=== PATIENT | female | born 1935 | race African-American/Black ===

== ENCOUNTER 2017-08-13 09:56 | Inpatient (IN) | payer MEDICARE ==
[2017-08-13 10:26] LABS: #Basophils 0.1 thou/uL (0.0-0.2); #Eosinphils 0.2 thou/uL (0.0-0.7); #Lymphocytes 3.5 thou/uL (1.20-3.40); #Monocytes 1.6 thou/uL (0.11-0.59); #Neutrophils 9.5 thou/uL (1.40-6.50); %Basophils 0.4 % (0.0-1.0); %Eosinophils 1.5 % (0.0-10.0); %Lymphocytes 23.8 % (21.0-51.0); %Monocytes 10.6 % (0.0-10.0); %Neutrophils 63.8 % (42.0-75.0); Hemoglobin 13.7 g/dL (12.0-16.0); Mean Corpuscular HGB CONC 32.9 g/dL (32.0-36.0); Mean Corpuscular Hemoglobin 27.8 pg (27.0-31.0); Mean Corpuscular Volume 84.6 fl (81.0-99.0); Platelet Count 391 thou/uL (130-400); RBC Distribution Width 13.3 % (11.5-14.5); Red Blood Cell (RBC) Count 4.91 mill/uL (4.20-5.40); White Blood Cell (WBC) Count 14.8 thou/uL (4.8-10.8)
[2017-08-13 10:34] LABS: Bilirubin Negative (Negative); Blood, Urine Negative (Negative); Clarity CLEAR (Clear); Glucose, Urine (Dipstick) Negative (Negative); Leukocyte Small (Negative); Nitrite Negative (Negative); Protein, Urine (Dipstick) Negative (Neg-Trace); Specific Gravity, Urine 1.016 (1.002-1.036)
[2017-08-13 10:36] LABS: Bacteria/HPF None Seen HPF (None Seen); Hyaline Casts/LPF 0-3 HYALINE CAST LPF (0-3 Hyaline); Pathc Cast-AUWi Flag 0.14 (0-2.49)
[2017-08-13 10:47] LABS: ALT (SGPT) 19 U/L (8-55); AST (SGOT) 18 U/L (5-34); Albumin 3.7 g/dL (3.4-4.8); Alkaline Phosphatase 117 U/L (40-150); Anion Gap 11 mmol/L (10-20); BUN (Urea Nitrogen) 13 mg/dL (9.8-20.1); Bilirubin, Total 0.4 mg/dL (0.2-1.2); Calc. Creatinine Clearance 0 mL/min (70-130); Calcium 11.8 mg/dL (7.8-10.44); Carbon Dioxide 26 mmol/L (23-31); Chloride 104 mmol/L (98-107); Estimated GFR-MDRD 73; Globulin 4.2 g/dL (2.4-3.5); Glucose 118 mg/dL (83-110); Potassium 3.8 mmol/L (3.5-5.1); Protein, Total 7.9 g/dL (6.0-8.3); Sodium 137 mmol/L (136-145)
[2017-08-13] MEDS ORDERED: Morphine 4 MG/ML VIAL ONE (11:00)
[2017-08-13] MEDS ORDERED: Lidocaine 1% w/Epinephrine 1:100K 20 ML VIAL ONE (11:00)
[2017-08-13] MEDS ORDERED: Adacel (T-DAP) 0.5 ML VIAL ONE (11:00)
[2017-08-13] MEDS ORDERED: Clindamycin/D5W 900 mg/50 ml Premix Bag ONE ×2 (11:00→11:01)
[2017-08-13] MEDS ORDERED: HYDROcodone/Acetaminophen 5/325 mg Tablet PO PRN ×2 (12:51)
[2017-08-13] MEDS ORDERED: Ondansetron PF 4 MG/2 ML Vial IVP PRN (12:51)
[2017-08-13] MEDS ORDERED: Acetaminophen 325 MG TAB PO PRN ×2 (12:51→13:01)
[2017-08-13] MEDS ORDERED: Ondansetron ODT 4 MG TAB SL PRN (12:51)
[2017-08-13] MEDS ORDERED: Sodium Chloride 0.9% 1,000 ML IV SCH (13:00)
[2017-08-13] MEDS ORDERED: Ondansetron ODT 4 MG TAB PO PRN (13:01)
[2017-08-13 14:09] VITALS: BMI 26.7
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
[2017-08-13] MEDS ORDERED: Senokot 8.6 MG TAB PO PRN (14:14)
[2017-08-13] MEDS ORDERED: Docusate 100 MG CAP PO PRN (14:14)
[2017-08-13] MEDS: Clindamycin/D5W 600 MG in Premix Bag 1 BAG IVPB SCH (18:10)
[2017-08-13] MEDS ORDERED: Clindamycin/D5W 900 MG in Premix Bag 1 BAG IVPB SCH (19:00)
[2017-08-13] MEDS ORDERED: Prevnar 13-Val Conj/PF 0.5 ML SYRINGE IM ONE (21:00)
[2017-08-14] MEDS: Clindamycin/D5W 600 MG in Premix Bag 1 BAG IVPB SCH ×2 (02:36→10:09)
[2017-08-14 05:46] LABS: Anion Gap 12 mmol/L (10-20); BUN (Urea Nitrogen) 14 mg/dL (9.8-20.1); Calc. Creatinine Clearance 62 mL/min (70-130); Calcium 11.3 mg/dL (7.8-10.44); Carbon Dioxide 24 mmol/L (23-31); Chloride 104 mmol/L (98-107); Estimated GFR-MDRD 74; Glucose 87 mg/dL (83-110); Potassium 4.3 mmol/L (3.5-5.1); Sodium 136 mmol/L (136-145)
[2017-08-14 06:02] LABS: Band 1 % (5-11); Eosinophils 4 % (0-10); Hemoglobin 12.4 g/dL (12.0-16.0); Lymphocytes 34 % (21-51); MDiff Complete? YES; Mean Corpuscular HGB CONC 32.5 g/dL (32.0-36.0); Mean Corpuscular Hemoglobin 27.4 pg (27.0-31.0); Mean Corpuscular Volume 84.2 fl (81.0-99.0); Mean Platelet Volume 8.4 fL (7.4-10.4); Monocytes 8 % (0-10); Neutrophil 53 % (42-75); Platelet Count 364 thou/uL (130-400); RBC Distribution Width 13.4 % (11.5-14.5); Red Blood Cell (RBC) Count 4.53 mill/uL (4.20-5.40); White Blood Cell (WBC) Count 11.6 thou/uL (4.8-10.8)
[2017-08-14] MEDS ORDERED: Enoxaparin Sodium 40 MG/0.4 ML SYRINGE SC SCH (09:00)
[2017-08-14] MEDS ORDERED: Donepezil HCl 5 MG TAB PO SCH (09:00)
[2017-08-14] MEDS ORDERED: Saccharomyces boulardii 250 MG CAP PO SCH (09:00)
[2017-08-14 11:25] VITALS: TEMP 98.2
--- NOTE | 2017-08-14 11:53 | PDOC.FM ---
- Subjective Subjective: A&Ox1. Only to person. Unable to obtain accurate hx. Pt deneis any fever or chills. Denies any abdominal pain. Denies any n/v/d/c. Family in room denies any acute events overnight. - Objective Vital Signs & Weight: Vital Signs (12 hours) Temp Pulse Resp BP Pulse Ox 08/14/17 11:24 98.2 F 76 16 115/78 96 08/14/17 07:37 98.8 F 73 20 93 L 08/14/17 07:25 98.8 F 73 20 116/72 93 L 08/14/17 03:46 97.2 F L 84 20 129/77 92 L 08/13/17 23:56 97.6 F 85 18 104/65 93 L I&O: 08/13/17 08/14/17 08/15/17 06:59 06:59 06:59 Intake Total 399.8 Balance 399.8 Result Diagrams: 08/14/17 03:58 08/14/17 03:58 EKG Reviewed by me: Yes Phys Exam - Physical Examination Constitutional: NAD HEENT: PERRLA, moist MMs Neck: no nodes, no JVD, supple, full ROM Respiratory: no wheezing, no rales, no rhonchi, clear to auscultation bilateral Cardiovascular: RRR, no significant murmur, no rub Gastrointestinal: soft, no distention, positive bowel sounds Abcess with packing in RLQ. No drainage noted. Some mild erythema Mild ttp in RLQ around wound Musculoskeletal: no edema, pulses present Neurological: non-focal, normal sensation, moves all 4 limbs Lymphatic: no nodes Psychiatric: normal affect, A&O x 3 Skin: no rash, normal turgor, cap refill <2 seconds Dx/Plan (1) Acute abscess Code(s): L02.91 - CUTANEOUS ABSCESS, UNSPECIFIED Status: Acute (2) Cellulitis of abdominal wall Code(s): L03.311 - CELLULITIS OF ABDOMINAL WALL Status: Acute (3) Dementia Code(s): F03.90 - UNSPECIFIED DEMENTIA WITHOUT BEHAVIORAL DISTURBANCE Status: Chronic (4) HLD (hyperlipidemia) Code(s): E78.5 - HYPERLIPIDEMIA, UNSPECIFIED Status: Chronic (5) HTN (hypertension) Code(s): I10 - ESSENTIAL (PRIMARY) HYPERTENSION Status: Chronic - Plan Plan: 1) Acute Abscess complicated by Cellulitis - S/p I&D: - Will add augmentin with clindamycin due to abscess with drainage - Tolerating PO fluids well, not showing any signs of sepsis and is s/p 1L NS bolus, Lactic acid is 1.3 - Pain management with Tylenol and ibuprofen - Wound care consulted -Will d/c home today with abx regimen and have close f/u with pcp. Has caregiver who can pack wound 2) Moderate Dementia: - Continue home medications - Will likely need constant reorientation - Fall precautions 3) HTN: - Continue home meds 4) HLD: - continue home meds. 5) Activity: Amb with Assist
[2017-08-14 12:11] VITALS: BP 122/77
--- NOTE | 2017-08-14 12:13 | ADD-PRG ---
DATE OF SERVICE: 08/14/2017 This is an addendum to the note of Dr. Aris Meza. HISTORY OF PRESENT ILLNESS: Ms. Caballero's wound appears clean, dry, and is not draining. It was I&D'd yesterday and Wound Care is on board with her care. She can likely be discharged later today to [facility] as an outpatient.
--- NOTE | 2017-08-14 13:06 | PQF ---
DATE: 08-14-17 ATTN: DR. WENDI VALENTIN Please exercise your independent, professional judgment in responding to the clarification form. Clinical indicators are provided on the bottom of this form for your review Please check appropriate box(s): [ x ] UTI [ ] Contaminated urine specimen without UTI [ ] Other diagnosis [ ] Unable to determine In addition, please specify: Present on Admission (POA): [x ] Yes [ ] No [ ] Unable to determine For continuity of documentation, please document condition throughout progress notes and discharge summary. Thank You. CLINICAL INDICATORS - SIGNS / SYMPTOMS / LABS URINE 08-13-17: URINE UROBILINOGEN: 2.0 H UR LEUKOCYTE ESTERASE: SMALL H URINE WBC: 4-6 H UR SQUAMOUS EPITH CELLS: 4-6 H RISK FACTORS: ER DOCUMENTATION: DEMENTIA NURSES NOTE 08-13-17: PT IS CONFUSED BUT PLEASANT TREATMENT: (MAR) CLEOCIN, (ER) IVF (This form is maintained as a part of the permanent medical record) 2014 [email or web address] All Rights Reserved [email or web address] Office: [phone] RHONDA
--- NOTE | 2017-08-14 14:16 | DIS-2 ---
DATE OF ADMISSION: 08/13/2017 DATE OF DISCHARGE: 08/14/2017 ADMITTING ATTENDING: Dr. Rusty Ibarra. DISCHARGE ATTENDING: Dr. Abraham Head. RESIDENT: Aris Meza MD, PGY1. IMAGING: None. CONSULTS: None. PRIMARY DIAGNOSIS: Cellulitis with a drainable abscess, status post incision and drainage. SECONDARY DIAGNOSES: 1. Moderate dementia. 2. Hypertension. 3. Hyperlipidemia. 4. Hypercalcemia. DISCHARGE MEDICATIONS: Include, 1. Augmentin 1 tab p.o. q.12 hours 500mg. 2. Clindamycin 450 mg p.o. q.6 hours, both for 10 days. 3. Aspirin 81 mg daily. 4. Donepezil 5 mg p.o. daily. 5. Acetaminophen 650 mg p.o. q.4 hours as needed. DISCONTINUED MEDICATIONS: We discontinued her triamterene and hydrochlorothiazide due to the hyperca lcemia and blood pressures were stable. HISTORY OF PRESENT ILLNESS AND BRIEF HOSPITAL COURSE: This is an 81-year-old female with past medica l history of hypertension, hyperlipidemia, and dementia that came in with a 1-day history of abdomina l pain, swelling, and redness. When down there, they noticed an abscess, which was I and D'd, draine d out about 3 mL of pus. Patient seemed a little bit dry, a little bit acute kidney injury. Receive d 1 liter of normal saline and continued to get better. She was started on clindamycin IV. The jones ent continued to do well. The wound was packed this morning. Yesterday, her white blood cell count was 14.8, today is 11.6. The patient reported doing well overnight. No fevers, and at this time, we decided that she will be sent home on oral clindamycin and Augmentin due to having a drainable absce ss and packing. We asked that she follow up closely with her physician in order to get it repacked. Also, as she was here, her calcium was found to be 11.8 and then 11.3 today. She does take hydrochl orothiazide. Her blood pressures were normal or little bit low. We thought at this time this could be exacerbating her hypercalcemia. We recommend that she get a followup PTH test with her primary ca re physician and get this worked up. We will hold her triamterene and hydrochlorothiazide at this ti me. DISPOSITION: Stable. 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 ACTIVITY: Activity as tolerated. DIET: Heart healthy diet. FOLLOWUP: She will need to follow up with her primary care physician within the next 2 days, Dr. Huy mcclelland for repacking and assessment of the wound.
== END 2017-08-14 14:30 | disposition home health service (06) | DRG 603 ==
LOC: ERS 09:56 → T4-A 11:52
PROVIDERS: ADMIT Family Medicine; ATTEND Family Medicine
PROC: 0H97XZZ Drainage of Abdomen Skin, External Approach (ICD-10-PCS; principal; 2017-08-13)
DX: L03.311 Cellulitis of abdominal wall (principal); N17.9 Acute kidney failure, unspecified; F03.90 Unspecified dementia, unspecified severity, without behavioral disturbance, psychotic disturbance, mood disturbance, and anxiety; E83.52 Hypercalcemia; I10 Essential (primary) hypertension; E78.5 Hyperlipidemia, unspecified; Z79.82 Long term (current) use of aspirin; L02.211 Cutaneous abscess of abdominal wall; Z23 Encounter for immunization
CPT/HCPCS: 10060; 36415; 80048; 80053; 81003; 81015; 83605; 85007; 85025; 85027; 87040; 90471; 90670; 90715; 96365; 96375; G0009; G8978-GP-CI; G8979-GP-CI; G8980-GP-CI; J2001; J2270; J3490

== ENCOUNTER 2018-11-03 15:46 | Inpatient (IN) | payer MEDICARE ==
--- NOTE | 2018-11-03 17:11 | RAD ---
Exam: Chest one view HISTORY:Dementia. Confusion. Comparison: 02/20/2011 FINDINGS: Cardiac silhouette:Enlarged elongation of the aorta. Pulmonary vessels: Normal Costophrenic angles: Clear LUNGS: Chronic changes of the lung parenchyma. Superimposed interstitial opacities may be due to piero a or infiltrate. Stable calcified granuloma left midlung. Pneumothorax: None Osseous abnormalities: Chronic changes to the right hemithorax are noted. IMPRESSION: 1. Cardiomegaly 2. Elongation of the aorta 3. Possible interstitial edema or infiltrate, superimposed upon chronic change. Continued surveillanc e is recommended.
[2018-11-03 18:08] LABS: Hemoglobin 14.7 g/dL (12.0-16.0); Mean Corpuscular HGB CONC 30.8 g/dL (32.0-36.0); Mean Corpuscular Hemoglobin 25.7 pg (27.0-31.0); Mean Corpuscular Volume 83.6 fL (78.0-98.0); Mean Platelet Volume 9.3 fL (7.4-10.4); Platelet Count 411 thou/uL (130-400); Red Blood Cell (RBC) Count 5.71 mill/uL (4.20-5.40); White Blood Cell (WBC) Count 14.1 thou/uL (4.8-10.8)
[2018-11-03] MEDS ORDERED: Midazolam HCl 2 mg/2 ml Vial ONE (18:16)
[2018-11-03 18:17] LABS: ALT (SGPT) 22 U/L (8-55); AST (SGOT) 26 U/L (5-34); Albumin 4.3 g/dL (3.4-4.8); Alkaline Phosphatase 134 U/L (40-150); Anion Gap 18 mmol/L (10-20); BUN (Urea Nitrogen) 27 mg/dL (9.8-20.1); Bilirubin, Total 0.5 mg/dL (0.2-1.2); Calc. Creatinine Clearance 0 mL/min (70-130); Carbon Dioxide 24 mmol/L (23-31); Chloride 101 mmol/L (98-107); Estimated GFR-MDRD 35; Globulin 4.5 g/dL (2.4-3.5); Glucose 106 mg/dL (83-110); Magnesium 2.2 mg/dL (1.6-2.6); Potassium 3.8 mmol/L (3.5-5.1); Protein, Total 8.8 g/dL (6.0-8.3); Sodium 139 mmol/L (136-145)
[2018-11-03 18:21] LABS: Calcium 13.2 mg/dL (7.8-10.44)
[2018-11-03 18:28] LABS: Band 2 % (5-11); Eosinophils 1 % (0-10); Lymphocytes 17 % (21-51); MDiff Complete? YES; Monocytes 5 % (0-10); Neutrophil 75 % (42-75); Platelet Morphology Comment Appears Increased
[2018-11-03] MEDS ORDERED: Piperacillin/Tazobactam 2.25 GM VIAL ONE (19:18)
[2018-11-03] MEDS ORDERED: Calcitonin,Salmon,Synthetic 200 UNITS/ML IM SCH (19:30)
[2018-11-03] MEDS ORDERED: Piperacillin/Tazobactam 2.25 GM in Sodium Chloride 0.9% 100 ML IVPB SCH (19:30)
--- NOTE | 2018-11-03 19:32 | CT ---
Exam: Head CT without contrast HISTORY: Altered mental status COMPARISON: 02/07/2011 FINDINGS: Hemorrhage: No intraparenchymal hemorrhage or extra-axial hematoma. Brain parenchyma: Cortical garcia-white matter differentiation is preserved. Age-appropriate atrophy. There are chronic small vessel ischemic changes of the white matter. Ventricular system: Ventricles and sulci are patent and symmetric. Calvarium: Intact. Sinuses and mastoid air cells: Adequate aeration. IMPRESSION: 1. No acute intracranial process. 2. Age-appropriate atrophy. 3. Chronic small vessel ischemic changes of the white matter.
--- NOTE | 2018-11-03 19:55 | PDOC.FPRHP ---
- History of Present Illness Chief Complaint: AMS History of Present Illness: At time of H&P there is no family available and pt is A&Ox1. Per ERMD, the patient lives at home with family and was found to me more lethargic and confused than normal. In the ED, patient was unable to appropriately answer questions and appeared confused. She had no specific complaints. Per chart review, she has a hx of HTN, dementia, and chronic hypercalcemia. During her last hospitalization for cellulitis, her HCTZ was dc'd due to hypercalcemia. It is unknown at this time what her current meds are. PCP Dr Stevenson ED Course: Patient was found to have and elevated WBC count, elevated lactic acid, and elevated calcium. She was given 2L NS, Vanc, Zosyn, calcitonin, and zoledronic acid. Blood and urine cx were collected. - Allergies/Adverse Reactions Allergies Allergy/AdvReac Type Severity Reaction Status Date / Time No Known Allergies Allergy Verified 11/03/18 20:10 - Home Medications Medication Instructions Recorded Confirmed Type Donepezil HCl [Aricept] 5 mg PO DAILY 08/13/17 11/03/18 History Acetaminophen [Tylenol Regular 650 mg PO Q4H PRN tab 08/14/17 Rx Strength] Aspirin Chewable [Aspirin Chewable 81 mg PO DAILY tab 08/14/17 Rx Tablet] Comments: Patient unable to verify meds. This is c/w previous dc summary - History All hx per chart review PMHx: HTN Dementia Chronic hypercalcemia PSHx: cholecystectomy FHx: DM2 Social: No tobacco, etoh, drugs - Review of Systems ROS unobtainable: due to mental status - Vital signs BP: 143/94, Pulse: 76, Resp: 18, Temp: 98.1 (Oral), Pain: 0, O2 sat: 94 on Room Air - Physical Exam Constitutional: NAD -Constitutional: Alert, oriented only to self HEENT: normocephalic and atraumatic, EOMI, conjunctiva clear Neck: trachea midline Chest: no-tender to palpation Heart: RRR, normal S1/S2 Lungs: CTAB, no respiratory distress Abdomen: soft, non-tender -Abdomen: Suprapubic tenderness Musculoskeletal: normal structure, normal tone Neurological: no focal deficit -Skin: Multiple ulcers on buttock, no lou purulence Heme/Lymphatic: no unusual bruising or bleeding, no purpura, no petechia -Psychiatric: A&O x1 FMR H&P: Results - Labs Result Diagrams: 11/03/18 17:36 11/03/18 17:36 Lab results: WBC 14.1 thou/uL (4.8-10.8) H 11/03/18 17:36 Hgb 14.7 g/dL (12.0-16.0) 11/03/18 17:36 Hct 47.7 % (36.0-47.0) H 11/03/18 17:36 MCV 83.6 fL (78.0-98.0) 11/03/18 17:36 Plt Count 411 thou/uL (130-400) H 11/03/18 17:36 Band Neuts % (Manual) 2 % (5-11) L 11/03/18 17:36 Sodium 139 mmol/L (136-145) 11/03/18 17:36 Potassium 3.8 mmol/L (3.5-5.1) 11/03/18 17:36 Chloride 101 mmol/L (98-107) 11/03/18 17:36 Carbon Dioxide 24 mmol/L (23-31) 11/03/18 17:36 BUN 27 mg/dL (9.8-20.1) H 11/03/18 17:36 Creatinine 1.70 mg/dL (0.6-1.1) H 11/03/18 17:36 Glucose 106 mg/dL (83-110) 11/03/18 17:36 Lactic Acid 3.1 mmol/L (0.5-2.2) H 11/03/18 17:36 Calcium 13.2 mg/dL (7.8-10.44) H* 11/03/18 17:36 Total Bilirubin 0.5 mg/dL (0.2-1.2) 11/03/18 17:36 AST 26 U/L (5-34) 11/03/18 17:36 ALT 22 U/L (8-55) 11/03/18 17:36 Alkaline Phosphatase 134 U/L (40-150) 11/03/18 17:36 B-Natriuretic Peptide 34.8 pg/mL (0-100) 11/03/18 17:36 Serum Total Protein 8.8 g/dL (6.0-8.3) H 11/03/18 17:36 Albumin 4.3 g/dL (3.4-4.8) 11/03/18 17:36 Laboratory Tests 11/03/18 11/03/18 11/03/18 17:36 19:00 19:00 Procalcitonin 0.06 TSH 3rd Generation 0.8766 PTH Intact 326.1 H - EKG Interpretation EKG: Rate 81, multiple PAC, no ST or T wave changes. - Radiology Interpretation Chest x-ray Status: image reviewed by me, report reviewed by me Additional comment: Stable L lung field graunuloma, mild stable cardiomegally CT scan - head Status: image reviewed by me, report reviewed by me Additional comment: No acute changes, chronic dementia FMR H&P: A/P - Problem List (1) Hypercalcemia Current Visit: Yes Status: Acute Code(s): E83.52 - HYPERCALCEMIA (2) NORBERT (acute kidney injury) Current Visit: Yes Status: Acute Code(s): N17.9 - ACUTE KIDNEY FAILURE, UNSPECIFIED (3) Dementia Current Visit: No Status: Chronic Code(s): F03.90 - UNSPECIFIED DEMENTIA WITHOUT BEHAVIORAL DISTURBANCE (4) HTN (hypertension) Current Visit: No Status: Chronic Code(s): I10 - ESSENTIAL (PRIMARY) HYPERTENSION - Plan 1. Hypercalcemia - acute on chronic elevation. Likely related to volume contraction in the context of NORBERT - PTH elevated to 326 c/w primary hyperparathyroid. - received fluids, procalcitonin, and zoledronic acid in ED. Recheck Ca 6 hours after initial draw. - Continue IVF - admit to tele 2. 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 - given mental status, she is unlikely a candidate for surgery. Will need to be discussed with PCP for further management 4. HTN - continue home meds 5. Dementia - continue home meds 6. Leukocytosis - unclear etiology. UA is clear. Cultures pending - given negative procal, this is most likely unrelated to acute bacterial infection. PPx lovenox Diet regular Code Full Disposition/LOS: Currently stable with high likelihood of returning to baseline status. Likely length of stay 1-2 days
[2018-11-03 20:10] LABS: Bilirubin Negative (Negative); Blood, Urine Negative (Negative); Clarity Clear (Clear); Glucose, Urine (Dipstick) Normal (Negative); Leukocyte 25 Leu/uL (Negative); Nitrite Negative (Negative); Protein, Urine (Dipstick) Negative (Neg-Trace); RBC/HPF 0-3 HPF (0-3); Squamous Epithelial 0-3 HPF (0-3); Urobilinogen Normal mg/dL (Less than 2); WBC/HPF 0-3 HPF (0-3)
[2018-11-03 20:11] LABS: Bacteria/HPF None Seen HPF (None Seen)
[2018-11-03 21:54] LABS: Lactic Acid 0.4 mmol/L (0.5-2.2)
[2018-11-03 22:05] VITALS: BMI 21.5
[2018-11-03] MEDS ORDERED: Melatonin 3 MG TAB PO SCH (22:45)
[2018-11-03] MEDS ORDERED: Senokot S 8.6-50 MG TAB PO PRN (23:15)
[2018-11-03] MEDS ORDERED: Ondansetron ODT 4 MG TAB PO PRN (23:15)
[2018-11-03] MEDS ORDERED: Acetaminophen 325 MG TAB PO PRN (23:15)
[2018-11-03] MEDS: Sodium Chloride 0.9% 1,000 ML IV SCH ×2 (23:42→23:43)
[2018-11-04 00:54] LABS: ALT (SGPT) 17 U/L (8-55); AST (SGOT) 21 U/L (5-34); Albumin 3.6 g/dL (3.4-4.8); Alkaline Phosphatase 110 U/L (40-150); Anion Gap 13 mmol/L (10-20); BUN (Urea Nitrogen) 22 mg/dL (9.8-20.1); Bilirubin, Total 0.5 mg/dL (0.2-1.2); Calc. Creatinine Clearance 35 mL/min (70-130); Calcium 11.2 mg/dL (7.8-10.44); Carbon Dioxide 24 mmol/L (23-31); Chloride 107 mmol/L (98-107); Estimated GFR-MDRD 45; Globulin 3.7 g/dL (2.4-3.5); Glucose 119 mg/dL (83-110); Potassium 3.5 mmol/L (3.5-5.1); Protein, Total 7.3 g/dL (6.0-8.3); Sodium 140 mmol/L (136-145)
[2018-11-04] MEDS: Sodium Chloride 0.9% 1,000 ML IV SCH ×2 (05:16→14:03)
[2018-11-04 06:43] LABS: ALT (SGPT) 17 U/L (8-55); AST (SGOT) 20 U/L (5-34); Albumin 3.4 g/dL (3.4-4.8); Alkaline Phosphatase 102 U/L (40-150); Anion Gap 10 mmol/L (10-20); BUN (Urea Nitrogen) 20 mg/dL (9.8-20.1); Bilirubin, Total 0.5 mg/dL (0.2-1.2); Calc. Creatinine Clearance 40 mL/min (70-130); Calcium 11.2 mg/dL (7.8-10.44); Carbon Dioxide 27 mmol/L (23-31); Chloride 108 mmol/L (98-107); Estimated GFR-MDRD 53; Globulin 3.5 g/dL (2.4-3.5); Glucose 108 mg/dL (83-110); Potassium 3.6 mmol/L (3.5-5.1); Protein, Total 6.9 g/dL (6.0-8.3); Sodium 141 mmol/L (136-145)
--- NOTE | 2018-11-04 06:49 | PDOC.FM ---
- Subjective Subjective: NAEO. Patient reports feeling well this AM. Denies any pain, SOB or N/V/D. - Objective MAR Reviewed: Yes Vital Signs & Weight: Vital Signs (12 hours) Temp Pulse Resp BP Pulse Ox 11/04/18 03:20 97.5 F L 64 12 115/66 92 L 11/03/18 23:25 98.4 F 82 17 132/79 94 L 11/03/18 21:10 98 11/03/18 21:05 98 F 82 18 129/89 99 Weight Weight 72.121 kg I&O: 11/02/18 11/03/18 11/04/18 06:59 06:59 06:59 Intake Total 1380 Output Total 400 Balance 980 Result Diagrams: 11/04/18 05:47 11/04/18 05:47 Phys Exam - Physical Examination Constitutional: NAD dry mucus membranes Neck: supple, full ROM Respiratory: no wheezing, no rales, no rhonchi, clear to auscultation bilateral Cardiovascular: RRR, no significant murmur Musculoskeletal: no edema Neurological: non-focal, moves all 4 limbs Psychiatric: normal affect Deviation from normal: A&O x1 Skin: no rash Deviation from normal: chronic follicular furuncles noted in right groin w/ mild surrounding -: warmth & erythema; non-TTP w/ no drainage noted Dx/Plan (1) NORBERT (acute kidney injury) Code(s): N17.9 - ACUTE KIDNEY FAILURE, UNSPECIFIED Status: Acute (2) Hypercalcemia Code(s): E83.52 - HYPERCALCEMIA Status: Acute (3) Dementia Code(s): F03.90 - UNSPECIFIED DEMENTIA WITHOUT BEHAVIORAL DISTURBANCE Status: Chronic (4) HLD (hyperlipidemia) Code(s): E78.5 - HYPERLIPIDEMIA, UNSPECIFIED Status: Chronic (5) HTN (hypertension) Code(s): I10 - ESSENTIAL (PRIMARY) HYPERTENSION Status: Chronic - Plan Plan: Hypercalcemia - Acute on chronic elevation of 13.2 on presentation. Likely related to volume contraction. - PTH elevated to 326 c/w primary hyperparathyroidism. - received fluids, procalcitonin, and zoledronic acid in ED. Recheck this AM still elevated at 11.2 but per chart review appears to be the patient's baseline. - Will continue IVFs & consider starting on calcitonin vs. bisphosphonate therapy prior to d/c but likely needs. NORBERT, improving - Cr down to 1.18 this AM. Will continue IVFs & continue to monitor w/ QD BMPs. Primary hyperparathyroidism - Patient has been stable in the 11 range for years. AM level down to baseline range at 11.2 as noted above. - Given mental status, she is unlikely a candidate for surgery. Will need to be discussed with PCP for further management. HTN - continue home meds Dementia - continue home meds Leukocytosis - Likely 2/2 volume contraction as down to 11 from 14 this AM s/p IVFs overnight. - Given negative procal, this is most likely unrelated to acute bacterial infection. Will continue to monitor. groin furuncles - Will consider initiating PO abx prior to discharge due to surrounding erythema and warmth noted on exam. Could also explain slightly elevated WBC count. - WC on board and will order warm/saline compresses as well to encourage any possible drainage. DVT PPx: lovenox Diet: regular Dispo: Anticipate possible d/c home today w/ close f/u w/ PCP in 2-3 days. Code: Full
[2018-11-04 08:15] LABS: Band 2 % (5-11); Hemoglobin 12.2 g/dL (12.0-16.0); Lymphocytes 23 % (21-51); MDiff Complete? YES; Mean Corpuscular HGB CONC 31.2 g/dL (32.0-36.0); Mean Corpuscular Hemoglobin 25.8 pg (27.0-31.0); Mean Corpuscular Volume 82.8 fL (78.0-98.0); Mean Platelet Volume 9.4 fL (7.4-10.4); Monocytes 5 % (0-10); Neutrophil 70 % (42-75); Platelet Count 363 thou/uL (130-400); RBC Distribution Width 13.8 % (11.5-14.5); Red Blood Cell (RBC) Count 4.74 mill/uL (4.20-5.40); White Blood Cell (WBC) Count 11.8 thou/uL (4.8-10.8)
[2018-11-04] MEDS ORDERED: Enoxaparin Sodium 30 MG/0.3 ML SYRINGE SC SCH (09:00)
[2018-11-04] MEDS ORDERED: Donepezil HCl 5 MG TAB PO SCH (09:00)
[2018-11-04] MEDS ORDERED: Aspirin Chewable 81 MG TAB PO SCH (09:00)
[2018-11-04 12:10] VITALS: BP 108/67; TEMP 97.8
--- NOTE | 2018-11-04 12:57 | HP ---
I have examined the patient. I have discussed the case with Dr. Iker Samuel and agree with his assessment plan. HISTORY OF PRESENT ILLNESS: Briefly, Ms. Caballero is an 83-year-old lady, who was found to be more lethargic and confused, normal. She was brought to the ER and found to have hypercalcemia, which she appears to have had a previous history. In the event, she was admitted for further evaluation and treatment. She was treated for the acute hypercalcemia in the ER and then admitted to the floor. PHYSICAL EXAMINATION: GENERAL: On exam, she is awake and alert, in no distress. VITAL SIGNS: Blood pressure is 140/88, her pulse rate is 76 and regular, respirations 18. She is afebrile. Her room air O2 saturation is 94%. EAR, NOSE, AND THROAT: No erythema or exudate. NECK: Supple. No neck masses. CARDIAC: Heart rhythm regular. No gallop or murmur noted. LUNGS: Diminished, but clear. No rales, rhonchi, or wheezes. ABDOMEN: Flat, benign, and soft. NEUROLOGIC: No focal deficits. LABORATORY DATA: White count initially 14,100, hemoglobin 14.7, hematocrit 47.4 with an MCV of 83.6. Her white count is dropped this morning to 11,800. Chemistries; sodium 140, potassium 3.5, chloride 107, bicarb 24, BUN 22, creatinine 1.36, calcium initially elevated to 13.2. After acute treatment in the ER, it is now 11.2. Her PTH is elevated at 326, which is well above the upper limits of normal of 88. ASSESSMENT: Hyperparathyroidism. PLAN: Initial treatment given in the ER. We will continue to monitor and institute chronic therapy care on the floor with looking at discharge probably in a day or two. Job ID: [id number]
--- NOTE | 2018-11-05 03:44 | DIS ---
DATE OF ADMISSION: 11/03/2018 DATE OF DISCHARGE: 11/04/2018 RESIDENT: Lyla Harrison MD ADMITTING ATTENDING: Abraham Head MD DISCHARGE ATTENDING: Abraham Head MD CONSULTS: None. PROCEDURES: 1. Chest x-ray on 11/03/2018, significant for cardiomegaly and possible interstitial edema or infiltrates superimposed on chronic change. 2. Brain CT on 11/03/2018, notable for age-appropriate atrophy and chronic small-vessel ischemic changes of the white matter. PRIMARY DIAGNOSES: 1. Hypercalcemia secondary to primary hyperparathyroidism. 2. Labial furuncles. 3. Acute kidney injury secondary to volume depletion. SECONDARY DIAGNOSES: 1. Hypertension. 2. Dementia. DISCHARGE MEDICATIONS: 1. Aricept 5 mg p.o. daily. 2. Acetaminophen 650 mg p.o. q.4 hours p.r.n. for pain. 3. Fosamax 10 mg p.o. daily. 4. Keflex 500 mg p.o. b.i.d. DISCONTINUED MEDICATIONS: None. HOSPITAL COURSE: The patient is an 83-year-old female with a past medical history significant for chronic hypercalcemia secondary to hyperparathyroidism, hypertension, and dementia, who presented to the emergency department due to reported increased lethargy and confusion over the last several days. On presentation to the emergency department, the patient's vitals were noted to be within normal limits with the exception of slight tachycardia with a heart rate of 106. Chest x-ray and a CT of the head were obtained, both of which showed no acute processes. Labwork was notable for a slightly elevated WBC of 14.1 and an elevated calcium level of 13.2 and a lactate of 3.1. The patient was given 280 units IM of calcitonin and 2 mg of IV zoledronic acid, 2 L of normal saline, 1 mg of Versed, and IV vancomycin and Zosyn in the emergency department before being admitted for trending of her calcium levels to ensure they decreased overnight. Antibiotics were not continued on the floor as the patient's procalcitonin levels noted to be within normal limits at 0.06 and her white blood cell count was noted to downtrend after volume resuscitation overnight. In addition, the patient's calcium level downtrended to 11.2 on repeat later that evening and the following morning. Per chart review, this was found to be the patient's baseline calcium level and after noting that the patient was tolerating p.o. well, she was cleared for discharge home with close followup with her primary care provider within 2 to 3 days of discharge. Regarding the patient's labial furuncles, the patient's daughter reported that these had been present for several days and there were currently treating them with topical antibiotics at home. However, due to noted surrounding erythema and warmth on exam, the patient was discharged on a 7-day course of p.o. antibiotics and instructed to follow up closely with her PCP regarding this. DISPOSITION: Stable. DISCHARGE INSTRUCTIONS: 1. Location: Home. 2. Diet: Regular diet. 3. Activity: As tolerated. No restrictions. 4. Followup: The patient was instructed to follow up with her primary care provider, Dr. Stevenson within 2 to 3 days of discharge. Job ID: [id number] MTDD
[2018-11-06 14:12] LABS: A/G Ratio 0.7 (0.7-1.7); Alpha 1 0.3 g/dL (0.0-0.4); Alpha 2 1.2 g/dL (0.4-1.0); Beta 1.2 g/dL (0.7-1.3); Gamma 1.7 g/dL (0.4-1.8); Globulin, Total 4.3 g/dL (2.2-3.9); M-Spike Not Observed g/dL (Not Observed); Protein Electrophoresis Intrp Note: (.)
== END 2018-11-04 13:55 | disposition home or self-care (01) | DRG 644 ==
LOC: ERS 15:46 → 2NO 19:06
PROVIDERS: ADMIT Family Medicine; ATTEND Family Medicine
DX: E21.0 Primary hyperparathyroidism (principal); N17.9 Acute kidney failure, unspecified; E86.9 Volume depletion, unspecified; I10 Essential (primary) hypertension; F03.90 Unspecified dementia, unspecified severity, without behavioral disturbance, psychotic disturbance, mood disturbance, and anxiety; D72.829 Elevated white blood cell count, unspecified; Z90.49 Acquired absence of other specified parts of digestive tract; Z90.710 Acquired absence of both cervix and uterus; Z90.81 Acquired absence of spleen
CPT/HCPCS: 36415; 51701; 70450; 71045; 80053; 81003; 81015; 83605; 83735; 83880; 83970; 84145; 84165; 84443; 84484; 85025; 87040; 87086; 93005; 94760; 96361; 96365; 96368; 96372; 96375; A4353; J0630; J1650; J2250; J2543; J3489; J3490

== ENCOUNTER 2018-11-19 10:17 | Observation (INO) | payer MEDICARE ==
[2018-11-19] MEDS ORDERED: Ondansetron PF 4 MG/2 ML Vial ONE (11:27)
[2018-11-19] MEDS ORDERED: Lidocaine 2% Viscous Solution 10 ML, Aluminum & Magnesium Hydroxide 30 ML SSW SCH (11:45)
[2018-11-19 11:54] LABS: #Lymphocytes 1.1 thou/uL (1.20-3.40); #Monocytes 0.7 thou/uL (0.11-0.59); #Neutrophils 11.3 thou/uL (1.40-6.50); %Basophils 0.3 % (0.0-1.0); %Eosinophils 0.1 % (0.0-10.0); %Lymphocytes 8.1 % (21.0-51.0); %Monocytes 5.2 % (0.0-10.0); %Neutrophils 86.3 % (42.0-75.0); Mean Corpuscular HGB CONC 29.9 g/dL (32.0-36.0); Mean Corpuscular Hemoglobin 24.9 pg (27.0-31.0); Mean Corpuscular Volume 83.1 fL (78.0-98.0); Mean Platelet Volume 8.6 fL (7.4-10.4); Platelet Count 272 thou/uL (130-400); RBC Distribution Width 14.4 % (11.5-14.5); Red Blood Cell (RBC) Count 5.23 mill/uL (4.20-5.40); White Blood Cell (WBC) Count 13.1 thou/uL (4.8-10.8)
--- NOTE | 2018-11-19 12:03 | CT ---
CT OF THE ABDOMEN AND PELVIS WITH IV CONTRAST: Date: 11/19/18 INDICATION: History of splenectomy, hysterectomy, and cholecystectomy with epigastric abdominal pain. COMPARISON: Prior CT of the abdomen dated 11/22/07. There is bibasilar subsegmental volume loss. 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 L eft kidney is again atrophic in appearance with associated left renal cyst. Right kidney appears with in normal limits. Right adrenal gland and pancreas appear within normal limits. The spleen is surgica lly absent. The gallbladder is surgically absent. No focal hepatic lesion is evident. No free fluid is evident. There is a prominent amount of retained stool within the colon. There is an IVC filter seen within the infrarenal IVC at approximately the L3-4 intervertebral level. Prominent amount of retained stool seen within the rectum. Bladder is partially decompressed. No lisandro e fluid is evident. There are multiple unopacified bowel loops within the lower pelvis. There is post surgical change of a right hemicolectomy. There is dextroscoliosis of the lumbar spine. There is diffuse osteopenia. No definite acute osseous abnormality is evident. IMPRESSION: 1. Prominent amount of retained stool within the rectum and colon. 2. Mild bibasilar atelectasis. 3. Stable left adrenal mass. 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 4. Left atrophic left kidney with cyst. 5. IVC filter. POS: OFF
[2018-11-19 12:11] LABS: ALT (SGPT) 10 U/L (8-55); AST (SGOT) 23 U/L (5-34); Albumin 4.1 g/dL (3.4-4.8); Alkaline Phosphatase 88 U/L (40-150); Anion Gap 17 mmol/L (10-20); BUN (Urea Nitrogen) 22 mg/dL (9.8-20.1); Bilirubin, Total 0.7 mg/dL (0.2-1.2); Calc. Creatinine Clearance 0 mL/min (70-130); Calcium 11.7 mg/dL (7.8-10.44); Carbon Dioxide 25 mmol/L (23-31); Chloride 100 mmol/L (98-107); Estimated GFR-MDRD 31; Globulin 4.1 g/dL (2.4-3.5); Glucose 140 mg/dL (83-110); Lipase 19 U/L (8-78); Potassium 4.2 mmol/L (3.5-5.1); Protein, Total 8.2 g/dL (6.0-8.3); Sodium 138 mmol/L (136-145)
[2018-11-19 12:33] LABS: Burr Cells SLIGHT = 2-5 cells (100X) (0-1/hpf); MDiff Complete? YES; Polychromasia SLIGHT = 2-3 cells (100X) (0-2/hpf)
--- NOTE | 2018-11-19 13:31 | PDOC.FPRHP ---
- History of Present Illness Chief Complaint: weakness and abdominal pain History of Present Illness: 83 yo f with PMHx of HLD, HTN, dementia, and primary hyperparathyroidism presents with abdominal pain and collapsed this morning. Per her daughter, she did not lose consciousness or hit her head. Denies sx of a seizure. She felt dizzy/sick at that time. She complained of abdominal pain shortly after the collapse. She stooled this morning, but it was hard, per the daughter. C/o decreased urination. She is currently taking alendronate every day with food. Daughter complains of decreased urination as well and decreased PO intake. Daughter complains of weight loss over the last 5-6 years, which she attributes to her decreased appetite. She was recently admitted for hypercalcemia and UTI. She has a caregiver that cares for her 5 days per week while her daughter is at work. ED Course: Zofran, GI cocktail, 1L NS - Allergies/Adverse Reactions Allergies Allergy/AdvReac Type Severity Reaction Status Date / Time No Known Allergies Allergy Verified 11/03/18 20:10 - Home Medications Medication Instructions Recorded Confirmed Type Donepezil HCl [Aricept] 5 mg PO DAILY 08/13/17 11/04/18 History Acetaminophen [Tylenol Regular 650 mg PO Q4H PRN tab 11/04/18 Rx Strength] Alendronate Sodium [Fosamax] 10 mg PO DAILY-AC #30 tab 11/04/18 Rx Cephalexin [Keflex] 500 mg PO BID 7 Days #14 capsule 11/04/18 Rx - History PMHx:HTN, Dementia, HLD PSHx: Cholecystectomy, Splenectomy, Hysterectomy, Colonic polyp removal FHx: maternal diabetes and heart disease Social: daughter denies etoh, smoking, drug use - Review of Systems General: reports: weight/appetite/sleep changes (over the last 5-6 years). denies: fever/chills Respiratory: denies: shortness of breath Cardiovascular: denies: chest pain Gastrointestinal: reports: constipation, abdominal pain. denies: nausea, vomiting, diarrhea Genitourinary: denies: dysuria, polyuria Neurological: reports: other (dizziness) Psychological: reports: other (dementia) - Vital signs BP: [117/82] HR: [73] RR: [16] Tmax: [98.6] Pox: [96]% on [RA] Wt: [72.57kg] - Physical Exam Constitutional: NAD Chest: no-tender to palpation Heart: RRR, normal S1/S2, no murmurs/rubs/gallops Lungs: CTAB, other (minimal air movement) Abdomen: soft, non-tender, bowel sounds present Musculoskeletal: normal structure Skin: other (poor skin turgor, cap refill > 2 seconds, dry mucous membranes) FMR H&P: Results - Labs Result Diagrams: 11/19/18 11:26 11/19/18 11:26 Lab results: WBC 13.1 thou/uL (4.8-10.8) H 11/19/18 11:26 Hgb 13.0 g/dL (12.0-16.0) 11/19/18 11:26 Hct 43.5 % (36.0-47.0) 11/19/18 11:26 MCV 83.1 fL (78.0-98.0) 11/19/18 11:26 Plt Count 272 thou/uL (130-400) 11/19/18 11:26 Neutrophils % 86.3 % (42.0-75.0) H 11/19/18 11:26 Sodium 138 mmol/L (136-145) 11/19/18 11:26 Potassium 4.2 mmol/L (3.5-5.1) 11/19/18 11:26 Chloride 100 mmol/L (98-107) 11/19/18 11:26 Carbon Dioxide 25 mmol/L (23-31) 11/19/18 11:26 BUN 22 mg/dL (9.8-20.1) H 11/19/18 11:26 Creatinine 1.88 mg/dL (0.6-1.1) H 11/19/18 11:26 Glucose 140 mg/dL (83-110) H 11/19/18 11:26 Calcium 11.7 mg/dL (7.8-10.44) H 11/19/18 11:26 Total Bilirubin 0.7 mg/dL (0.2-1.2) 11/19/18 11:26 AST 23 U/L (5-34) 11/19/18 11:26 ALT 10 U/L (8-55) 11/19/18 11:26 Alkaline Phosphatase 88 U/L (40-150) 11/19/18 11:26 Serum Total Protein 8.2 g/dL (6.0-8.3) 11/19/18 11:26 Albumin 4.1 g/dL (3.4-4.8) 11/19/18 11:26 Lipase 19 U/L (8-78) 11/19/18 11:26 - EKG Interpretation EKG: Normal sinus rhythm, no ectopics, normal axis - Radiology Interpretation CT scan - abdomen Status: report reviewed by me (1. Prominent amount of retained stool within the rectum and colon. 2. Mild bibasilar atelectasis. 3. Stable left adrenal mass. 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 4. Left atrophic left kidney with cyst. 5. IVC filter.) FMR H&P: A/P - Problem List (1) NORBERT (acute kidney injury) Current Visit: No Status: Acute Code(s): N17.9 - ACUTE KIDNEY FAILURE, UNSPECIFIED (2) Hypercalcemia Current Visit: No Status: Acute Code(s): E83.52 - HYPERCALCEMIA (3) Dementia Current Visit: No Status: Chronic Code(s): F03.90 - UNSPECIFIED DEMENTIA WITHOUT BEHAVIORAL DISTURBANCE (4) HLD (hyperlipidemia) Current Visit: No Status: Chronic Code(s): E78.5 - HYPERLIPIDEMIA, UNSPECIFIED (5) HTN (hypertension) Current Visit: No Status: Chronic Code(s): I10 - ESSENTIAL (PRIMARY) HYPERTENSION - Plan 83F with PMHX of HTN, HLD, dementia presents with abdominal pain s/p a collapse #Chronic Hypercalcemia c/w primary hyperparathyroidism -Calcium of 11.7 -Calcium of 11.2 on previous admission earlier this month -PTH on 11/03 326, c/w primary hyperparathyroidism -previous admissions discussed unlikely possibility of sx for hyperparathyroidism 2/2 mental status -Daughter confirms decreased PO intake, decreased urinary output, and decreased mobility -Patient takes alendronate every day, continue -IVF, encourage PO hydration -Soft diet with limited calcium -Monitor on obs #NORBERT -BUN/Creatinine 11.7 -Creatinine on previous admissions 1.36 and 1.18 -FeNa pending -IVF #HTN -Vitals stable today, BP 117/82 -D/c triamterene/hctz -10mg Hydralazine PRN SBP>180 -Consider lasix tomorrow for increased renal calcium excretion after patient is rehydrated -monitor BPs #Dementia -Continue home meds FMR H&P: Upper Level - Pertinent history 83 yo f with pmhx of primary hyperparathyroidism and dementia presents with weakness/near syncope, admitted for hypercalcemia and an NORBERT. Vitals stable, afebrile PE: alert not oriented dry mucous membranes no respiratory distress RRR Labs wbc: 13, 86% PMNs Cr 1.88 BUN 20 A:P Hypercalcemia 2/2 primary hyperparathydroidism, decreased po intake, dehydration related to dementia- -will start pt on IV maintenance fluids, will hold her triamterene, restart her alendronate, and start her on Lasix 20mg po daily -will recheck BMP and cbc in the am -will limit calcium and phosph in pt's diet NORBERT -suspect prerenal, will get a urine na and urine cr to calculate FeNA -maintenance fluids started, will recheck BMP in the am Dementia-aware, restarted aricept, started mechanical soft diet, and will limit calcium, and phosph in her diet HTN-held triamterene as it is not recommended for use in the elderly; will consider started amlodipine daily for hypertension -pt has hydralazine 10mg q4h prn sbp>180 H. MD Bronwyn, PGY-3 - Plan Date/Time: 11/19/18 1330 I, [], have evaluated this patient and agree with findings/plan as outlined by internet merchant resident. Pertinent changes/additions are listed here.
[2018-11-19] MEDS ORDERED: ISOVUE-370 76%-LOCM 1 ML ONE (13:59)
[2018-11-19] MEDS ORDERED: Acetaminophen 325 MG TAB PO PRN (14:24)
[2018-11-19] MEDS ORDERED: Ondansetron ODT 4 MG TAB PO PRN (14:24)
[2018-11-19] MEDS ORDERED: hydrALAZINE 10 MG TAB PO PRN (15:08)
[2018-11-19] MEDS: Sodium Chloride 0.9% 1,000 ML IV SCH (17:09)
[2018-11-19 19:20] VITALS: BMI 21.3
[2018-11-19] MEDS: Heparin 5,000 UNITS/ML VIAL SC SCH (20:46)
[2018-11-19] MEDS: Donepezil HCl 10 MG TAB PO SCH (20:46)
[2018-11-19] MEDS: Melatonin 3 MG TAB PO PRN (20:46)
[2018-11-20] MEDS: Sodium Chloride 0.9% 1,000 ML IV SCH ×3 (01:28→22:39)
[2018-11-20 04:52] LABS: #Basophils 0.1 thou/uL (0.0-0.2); #Eosinphils 0.1 thou/uL (0.0-0.7); #Lymphocytes 2.3 thou/uL (1.20-3.40); #Monocytes 0.9 thou/uL (0.11-0.59); #Neutrophils 7.3 thou/uL (1.40-6.50); %Basophils 0.6 % (0.0-1.0); %Eosinophils 0.7 % (0.0-10.0); %Lymphocytes 21.4 % (21.0-51.0); %Monocytes 8.8 % (0.0-10.0); %Neutrophils 68.6 % (42.0-75.0); Hemoglobin 11.4 g/dL (12.0-16.0); Mean Corpuscular Hemoglobin 25.6 pg (27.0-31.0); Mean Corpuscular Volume 82.4 fL (78.0-98.0); Mean Platelet Volume 8.6 fL (7.4-10.4); Platelet Count 237 thou/uL (130-400); RBC Distribution Width 14.3 % (11.5-14.5); Red Blood Cell (RBC) Count 4.45 mill/uL (4.20-5.40); White Blood Cell (WBC) Count 10.6 thou/uL (4.8-10.8)
[2018-11-20 05:07] LABS: Anion Gap 11 mmol/L (10-20); BUN (Urea Nitrogen) 24 mg/dL (9.8-20.1); Calc. Creatinine Clearance 34 mL/min (70-130); Carbon Dioxide 28 mmol/L (23-31); Chloride 103 mmol/L (98-107); Estimated GFR-MDRD 43; Glucose 87 mg/dL (83-110); Potassium 3.5 mmol/L (3.5-5.1); Sodium 138 mmol/L (136-145)
--- NOTE | 2018-11-20 05:09 | PDOC.FM ---
- Subjective Subjective: No acute events overnight. IV came out this morning and nursing came into the room during the evaluation to replace it. Denies cp, sob, abdominal pain. - Objective MAR Reviewed: Yes Vital Signs & Weight: Vital Signs (12 hours) Temp Pulse Resp BP BP Pulse Ox 11/20/18 03:33 97.6 F 64 16 115/78 98 11/20/18 00:00 98.1 F 74 16 103/65 98 11/19/18 20:05 98 11/19/18 19:35 97.4 F L 80 16 113/75 98 Weight Weight 71.412 kg Result Diagrams: 11/20/18 04:06 11/20/18 04:06 Radiology Reviewed by me: Yes Phys Exam - Physical Examination Constitutional: NAD Respiratory: no wheezing, no rales, no rhonchi decreased breath sounds throughout Cardiovascular: RRR, no significant murmur, no rub Gastrointestinal: soft, non-tender, no distention, positive bowel sounds Musculoskeletal: no edema, pulses present dementia Deviation from normal: cap refill <2 sec, poor skin turgor Dx/Plan (1) NORBERT (acute kidney injury) Code(s): N17.9 - ACUTE KIDNEY FAILURE, UNSPECIFIED Status: Acute (2) Hypercalcemia Code(s): E83.52 - HYPERCALCEMIA Status: Acute (3) Dementia Code(s): F03.90 - UNSPECIFIED DEMENTIA WITHOUT BEHAVIORAL DISTURBANCE Status: Chronic (4) HLD (hyperlipidemia) Code(s): E78.5 - HYPERLIPIDEMIA, UNSPECIFIED Status: Chronic (5) HTN (hypertension) Code(s): I10 - ESSENTIAL (PRIMARY) HYPERTENSION Status: Chronic - Plan Plan: 83F with PMHX of HTN, HLD, dementia presents with abdominal pain s/p a collapse #Chronic Hypercalcemia c/w primary hyperparathyroidism -Calcium of 11.0 today, down from 11.7 yesterday -Calcium of 11.2 on previous admission earlier this month -PTH on 11/03 326, c/w primary hyperparathyroidism -previous admissions discussed unlikely possibility of sx for hyperparathyroidism 2/2 mental status -Daughter confirms decreased PO intake, decreased urinary output, and decreased mobility -Patient takes alendronate every day, continue -IVF, increase to 125ml/hr, encourage PO hydration -Soft diet with limited calcium -recheck calcium 1400 today -Monitor on obs #NORBERT -BUN/Creatinine 24/1.4->17.1, changed from 21/1.88->11 yesterday -Creatinine on previous admissions 1.36 and 1.18 -FeNa pending -IVF #HTN -Vitals stable today, BP 115/87 -D/c triamterene/hctz -10mg Hydralazine PRN SBP>180 -Consider lasix later today for increased renal calcium excretion if patient is adequately rehydrated -monitor BPs #Dementia -Continue home meds -placed palliative care consult -consulted renal nurse Fluids: N/S @ 110/hr DVT proph: Heparin BID Diet: soft, low calcium + ensure Code Status: Full Code Dispo: Likely d/c today or tomorrow pending calcium levels Addendum - Attending - Attending Attestation Date/Time: 11/20/18 2385 I personally evaluated the patient and discussed the management with Dr. Rowe. I agree with the History, Examination, Assessment and Plan documented above with any addition or exceptions noted below. Pt with hypercalcemia and norbert likely 2/2 dehydration, decreased po intake. Will increase IV fluids. Trend calcium.
[2018-11-20] MEDS: Heparin 5,000 UNITS/ML VIAL SC SCH ×2 (08:48→21:22)
[2018-11-20 14:29] LABS: Anion Gap 10 mmol/L (10-20); BUN (Urea Nitrogen) 20 mg/dL (9.8-20.1); Calc. Creatinine Clearance 38 mL/min (70-130); Calcium 10.8 mg/dL (7.8-10.44); Carbon Dioxide 28 mmol/L (23-31); Chloride 105 mmol/L (98-107); Estimated GFR-MDRD 50; Glucose 96 mg/dL (83-110); Potassium 4.4 mmol/L (3.5-5.1); Sodium 139 mmol/L (136-145)
[2018-11-20] MEDS: Donepezil HCl 10 MG TAB PO SCH (21:22)
[2018-11-20] MEDS: Melatonin 3 MG TAB PO PRN (21:22)
[2018-11-21 01:04] LABS: Creatinine, Urine 108.89 mg/dL (47-110)
[2018-11-21] MEDS: Sodium Chloride 0.9% 1,000 ML IV SCH (04:59)
--- NOTE | 2018-11-21 05:11 | PDOC.FM ---
- Subjective Subjective: No acute events overnight. Patient doing well with no complaints. Wound care saw her yesterday, small laceration below the umbilicus. Daughter says she has been scratching at that area. Palliative care consultation this morning, informed daughter Frances Caballero to bring POA document to the hospital and to patient's PCP. Increasing PO intake was discussed, including ensure and gatorade zero to try to keep patient hydrated and nourished. Daughter says patient has limited mobility at home, mostly sits by the window or watching tv. She was concerned about patient's bp meds. D/c traimterene/hctz meds following discharge from hospital and f/u with pcp to check bp within 1 week was discussed. Patient denies cp, SOB, abdominal pain. Palliative care reported some constipation was noted and miralax was added. - Objective Vital Signs & Weight: Vital Signs (12 hours) Temp Pulse Resp BP Pulse Ox 11/21/18 04:00 97.4 F L 85 16 108/71 94 L 11/21/18 03:33 97.4 F L 85 18 108/71 94 L 11/20/18 23:41 97.5 F L 75 16 100/65 96 11/20/18 20:00 97.5 F L 91 16 119/76 96 Weight Admit Weight 71.412 kg Weight 71.412 kg I&O: 11/19/18 11/20/18 11/21/18 06:59 06:59 06:59 Intake Total 360 Balance 360 Result Diagrams: 11/20/18 04:06 11/21/18 05:18 Phys Exam - Physical Examination Constitutional: NAD somewhat dry mucous membranes Respiratory: no wheezing, no rales, no rhonchi, clear to auscultation bilateral Cardiovascular: RRR, no significant murmur Gastrointestinal: soft, non-tender, no distention, positive bowel sounds Musculoskeletal: edema present +1 edema bilateral lower extremities Neurological: moves all 4 limbs Lymphatic: no nodes Deviation from normal: dementia Skin: no rash Deviation from normal: chapped lips, clean dry bandage over wound below the umbilicus Dx/Plan (1) NORBERT (acute kidney injury) Code(s): N17.9 - ACUTE KIDNEY FAILURE, UNSPECIFIED Status: Acute (2) Hypercalcemia Code(s): E83.52 - HYPERCALCEMIA Status: Acute (3) Dementia Code(s): F03.90 - UNSPECIFIED DEMENTIA WITHOUT BEHAVIORAL DISTURBANCE Status: Chronic (4) HLD (hyperlipidemia) Code(s): E78.5 - HYPERLIPIDEMIA, UNSPECIFIED Status: Chronic (5) HTN (hypertension) Code(s): I10 - ESSENTIAL (PRIMARY) HYPERTENSION Status: Chronic - Plan Plan: 83F with PMHX of HTN, HLD, dementia presents with abdominal pain s/p a collapse #Chronic Hypercalcemia c/w primary hyperparathyroidism -Calcium of 10.1 today, down from 10.8 yesterday afternoon -Calcium of 11.2 on previous admission earlier this month -PTH on 11/03 326, c/w primary hyperparathyroidism -previous admissions discussed unlikely possibility of sx for hyperparathyroidism 2/2 mental status -Daughter confirms decreased PO intake, decreased urinary output, and decreased mobility -Patient takes alendronate every day, continue -IVF @ 125ml/hr, encourage PO hydration -Soft diet with limited calcium -d/c traimterine/hctz on discharge -suggest dexa scan outpatient if she has not had one in the last 1-2 years #NORBERT -BUN/Creatinine changed to 15/0.97>15.5 from 24/1.4->17.1 yesterday and 21/ 1.88->11 on admission -Creatinine on previous admissions 1.36 and 1.18 -FeNa 0.3%, pre-renal -encourage PO outpatient #HTN -Vitals have been stable throughout stay, with BPs low-normal: BP today 108/71 -D/c triamterene/hctz 2/2 thiazides effects on increasing blood calcium -have patient monitor BPs at home and check BP at PCP within 1 week to establish need for anti-hypertensive #Dementia -Continue home meds -consulted clinical massage therapist, informed daughter of ways to encourage increased protein/ calorie nutrition Fluids: N/S @ 125/hr DVT proph: Heparin BID Diet: soft, low calcium + ensure Code Status: Full Code Dispo: d/c today Addendum - Attending - Attending Attestation Date/Time: 11/21/18 7020 I personally evaluated the patient and discussed the management with Dr. Rowe. I agree with the History, Examination, Assessment and Plan documented above with any addition or exceptions noted below. Calcium is improved. Pt is feeling better. Will d/c home. Encouraged good po intake.
[2018-11-21 06:10] LABS: Anion Gap 10 mmol/L (10-20); BUN (Urea Nitrogen) 15 mg/dL (9.8-20.1); Calc. Creatinine Clearance 49 mL/min (70-130); Calcium 10.1 mg/dL (7.8-10.44); Carbon Dioxide 26 mmol/L (23-31); Chloride 106 mmol/L (98-107); Estimated GFR-MDRD 66; Glucose 88 mg/dL (83-110); Potassium 3.7 mmol/L (3.5-5.1); Sodium 138 mmol/L (136-145)
[2018-11-21] MEDS: Heparin 5,000 UNITS/ML VIAL SC SCH (08:53)
[2018-11-21] MEDS ORDERED: Polyethylene Glycol 3350 17 GM Packet PO SCH (09:00)
[2018-11-21] MEDS ORDERED: diphenhydrAMINE 25 MG CAP PO PRN (10:37)
[2018-11-21 10:50] VITALS: BP 95/61; TEMP 98.3
--- NOTE | 2018-11-23 12:24 | DIS ---
DATE OF ADMISSION: 11/19/2018 DATE OF DISCHARGE: 11/21/2018 ADMITTING RESIDENT: Chritsiane Rowe MD ADMITTING ATTENDING: Dr. Bryan Del Rosario MD DISCHARGE RESIDENT: Christiane Rowe MD DISCHARGE ATTENDING: Evon Tinoco MD. CONSULTS: Dietitian, palliative care, wound care. PROCEDURES: None. IMAGING: On 11/19, abdomen and pelvis CT: 1. Prominent amount of retained stool within the rectum and colon. 2. Mild bibasilar atelectasis. 3. Stable left adrenal mass. 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 4. Left atrophic left kidney with cyst. 5. IVC filter. PRIMARY DIAGNOSES: Chronic hypercalcemia consistent with primary hyperparathyroidism, prerenal acute kidney injury. SECONDARY DIAGNOSES: Hypertension, hyperlipidemia, dementia. DISCHARGE MEDICATIONS: 1. Acetaminophen 325 mg p.o. q. 4 hours p.r.n. 2. Donepezil 5 mg p.o. daily. 3. Alendronate 10 mg p.o. daily. 4. Melatonin 6 mg p.o. at bedtime. DISCONTINUED MEDICATIONS: 1. Triamterene/HCTZ. 2. Normal saline. 3. Heparin 5000 units subcu b.i.d. 4. MiraLax. 5. Benadryl 25 mg p.o. q. 4 h. p.r.n. HISTORY OF PRESENT ILLNESS/HOSPITAL COURSE: The patient presented after collapsing at home and complaining of subsequent abdominal pain. The patient has dementia and was accompanied by her daughter who said she has had decreased p.o. intake over the last several years. Admission calcium was 11.7, creatinine 1.88, BUN 22, GFR 31. The patient was started on maintenance fluids, BP meds held due to blood pressures 110s/80s. On 11/20, morning calcium of 11.0, creatinine 1.4, BUN 24, afternoon calcium 10.8, creatinine 1.23, BUN 20. Ensure b.i.d. was started to help increase p.o. calorie and protein intake. Home hypertension meds again were held due to the blood pressures in the 100s/60s, IV fluids were increased. Dietitian was consulted, discussed increased calories and protein with patient and daughter. Wound care saw her, small laceration below the umbilicus due to the patient scratching that area. On 11/21, calcium 10.2, creatinine 0.97, BUN 15, GFR 66, and FENa 0.3%. Palliative care also consulted, and during a discussion about goals of care, I informed daughter Frances Caballero to bring POA document to the hospital and the patient's PCP. The patient's daughter says the patient has limited mobility at home, mostly sits by the window or watches the TV. She was concerned about the patient's blood pressure meds. Triamterene/HCTZ was never started during hospitalization and discontinued following discharge due to stable BPs throughout the hospitalization and possible effects of HCTZ on calcium. The patient's daughter discussed understanding to follow up with PCP to check BP within one week after discharge. DISCHARGE INSTRUCTIONS: 1. Location: Home with daughter. 2. Diet: Regular, soft, increased calories and protein with reduced calcium. 3. Activity: Ad kayleigh. 4. Followup: Within 1 week with PCP. Job ID: [id number] MTDD
== END 2018-11-21 11:35 | disposition home or self-care (01) ==
LOC: ERS 10:17 → SURG A 13:10
PROVIDERS: ADMIT Family Medicine; ATTEND Family Medicine
DX: E83.52 Hypercalcemia (principal); N17.9 Acute kidney failure, unspecified; I10 Essential (primary) hypertension; E78.5 Hyperlipidemia, unspecified; F03.90 Unspecified dementia, unspecified severity, without behavioral disturbance, psychotic disturbance, mood disturbance, and anxiety; J98.11 Atelectasis; E27.8 Other specified disorders of adrenal gland; N28.1 Cyst of kidney, acquired; Z79.899 Other long term (current) drug therapy
CPT/HCPCS: 74177; 80048 ×3; 80053; 82570; 83690; 84300; 84484; 85025 ×2; 93005; 96361 ×4; 96374; 99285; G0378 ×4; 36415; J1644; J2405; Q0163; Q9966

== ENCOUNTER 2018-12-26 14:23 | Inpatient (IN) | payer MEDICARE ==
[2018-12-26] MEDS ORDERED: Lorazepam 1 MG TAB ONE (15:48)
[2018-12-26 16:05] LABS: #Lymphocytes 1.9 thou/uL (1.20-3.40); #Monocytes 0.7 thou/uL (0.11-0.59); %Basophils 0.4 % (0.0-1.0); %Eosinophils 0.4 % (0.0-10.0); %Lymphocytes 21.7 % (21.0-51.0); %Monocytes 8.5 % (0.0-10.0); %Neutrophils 69.1 % (42.0-75.0); Hemoglobin 11.8 g/dL (12.0-16.0); Mean Corpuscular HGB CONC 31.5 g/dL (32.0-36.0); Mean Corpuscular Hemoglobin 26.4 pg (27.0-31.0); Mean Corpuscular Volume 83.8 fL (78.0-98.0); Mean Platelet Volume 10.8 fL (7.4-10.4); Platelet Count 259 thou/uL (130-400); RBC Distribution Width 16.5 % (11.5-14.5); Red Blood Cell (RBC) Count 4.47 mill/uL (4.20-5.40); White Blood Cell (WBC) Count 8.7 thou/uL (4.8-10.8)
[2018-12-26 16:15] LABS: ALT (SGPT) 8 U/L (8-55); AST (SGOT) 22 U/L (5-34); Albumin 3.7 g/dL (3.4-4.8); Alkaline Phosphatase 73 U/L (40-150); Anion Gap 15 mmol/L (10-20); BUN (Urea Nitrogen) 18 mg/dL (9.8-20.1); Bilirubin, Total 0.6 mg/dL (0.2-1.2); Calc. Creatinine Clearance 0 mL/min (70-130); Calcium 11.9 mg/dL (7.8-10.44); Carbon Dioxide 26 mmol/L (23-31); Chloride 105 mmol/L (98-107); Estimated GFR-MDRD 53; Globulin 4.2 g/dL (2.4-3.5); Glucose 91 mg/dL (83-110); Potassium 3.9 mmol/L (3.5-5.1); Protein, Total 7.9 g/dL (6.0-8.3); Sodium 142 mmol/L (136-145)
--- NOTE | 2018-12-26 16:24 | ULT ---
ULTRASOUND WITH DOPPLER DUPLEX VENOUS LOWER EXTREMITY LEFT 12/26/18 CPT: 59891 ICD-10-PCS: B54D HISTORY: Pain of the lower extremity. TECHNIQUE: Color flow Doppler, spectral waveform analysis of pulsed Doppler, and garcia-scale imaging with marcelina caroline and augmentation, were used to evaluate the left common femoral, femoral, popliteal, posterior t ibial, and superficial femoral, veins; and the proximal portions of the profunda femoral and greater saphenous, veins. FINDINGS: There is abnormal increased echogenicity with diminished flow and lack of normal compressibility span alise the level of the common femoral to the posterior tibial vein, predominantly occlusive. There is soft tissue edema. IMPRESSION: Extensive DVT of left lower extremity. Notification provided to Emergency Room nurse, Gina, at the time of the exam. Code CR POS: CET
[2018-12-26 16:42] LABS: INR-International Normal Ratio 1.2; PTT 27.3 SEC (22.9-36.1); Prothrombin Time 15.3 SEC (12.0-14.7)
[2018-12-26] MEDS ORDERED: Enoxaparin Sodium 100 MG/ML SYRINGE ONE (17:30)
[2018-12-26] MEDS ORDERED: Ondansetron PF 4 MG/2 ML Vial IVP PRN (19:23)
--- NOTE | 2018-12-26 19:31 | PDOC.FPRHP ---
- History of Present Illness Chief Complaint: Confusion and urinary retention History of Present Illness: 83 y/o f with pmhx of dementia, recurrent UTI's and DVT with IVC filter placement presents to the ED from home with her daughter. Daughter gives all history as pt is more confused from her baseline dementia. Pt has had urinary retention and increased confusion over the past week. Daughter gave the pt AZO's, which did not help. Pt was treated in October for a UTI , that did not grow anything out on culture. Completed her out pt course of cephalexin. Daughter states the pt is very sedentary and has had increased swelling in her legs over the past week. The pt stopped eating X1 week ago. ED Course: IFV LLE DVT found on US. Started therapeutic lovenox. Pt had no urine on straight cath insertion. - Allergies/Adverse Reactions Allergies Allergy/AdvReac Type Severity Reaction Status Date / Time No Known Allergies Allergy Verified 12/26/18 23:22 - Home Medications Medication Instructions Recorded Confirmed Type Donepezil HCl [Aricept] 10 mg PO DAILY 08/13/17 12/26/18 History Melatonin 6 mg PO HS 12/26/18 12/26/18 History - History PMHx: Dementia, Recurrent UTI, DVT with IVC filter, HTN currently off medications for HTN. PSHx: IVC filter placement FHx: Pt unable to answer questions about FHx Social: lives at home with daughter, has live in caregiver during the daytime. - Review of Systems ROS unobtainable: due to mental status (Pt reports "I feel fine." denies any pain.) - Vital signs BP: 134/81 HR: 74 RR: 18 Tmax: 97.4 Pox: 96% on RA Wt: 66.905 kg - Physical Exam Constitutional: NAD -Constitutional: oriented to person only. HEENT: normocephalic and atraumatic, PERRLA, conjunctiva clear, no scleral icterus, grossly normal vision, grossly normal hearing, MMM, oropharynx clear -HEENT: no teeth, or dentures in place. Neck: supple, FROM, trachea midline, no LAD, no JVD Chest: no-tender to palpation, no lesions Heart: RRR, normal S1/S2, no murmurs/rubs/gallops, pulses present -Heart: Left LE edema Lungs: CTAB, no respiratory distress, good air movement, no rales/rhonchi, no wheezing, no retractions Abdomen: soft, non-tender, bowel sounds present, no masses/distention -Musculoskeletal: left lower extremity retracted around ankle, and internally rotated. LLE edema. RLE no edema. Skin: no rash/lesions, good turgor, no jaundice Heme/Lymphatic: no unusual bruising or bleeding, no purpura, no petechia Psychiatric: normal mood and affect -Psychiatric: memory not intact. Altered mentation. FMR H&P: Results - Labs Result Diagrams: 12/26/18 15:45 12/26/18 15:45 Lab results: WBC 8.7 thou/uL (4.8-10.8) 12/26/18 15:45 Hgb 11.8 g/dL (12.0-16.0) L 12/26/18 15:45 Hct 37.5 % (36.0-47.0) 12/26/18 15:45 MCV 83.8 fL (78.0-98.0) 12/26/18 15:45 Plt Count 259 thou/uL (130-400) 12/26/18 15:45 Neutrophils % 69.1 % (42.0-75.0) 12/26/18 15:45 Sodium 142 mmol/L (136-145) 12/26/18 15:45 Potassium 3.9 mmol/L (3.5-5.1) 12/26/18 15:45 Chloride 105 mmol/L (98-107) 12/26/18 15:45 Carbon Dioxide 26 mmol/L (23-31) 12/26/18 15:45 BUN 18 mg/dL (9.8-20.1) 12/26/18 15:45 Creatinine 1.17 mg/dL (0.6-1.1) H 12/26/18 15:45 Glucose 91 mg/dL (83-110) 12/26/18 15:45 Calcium 11.9 mg/dL (7.8-10.44) H 12/26/18 15:45 Total Bilirubin 0.6 mg/dL (0.2-1.2) 12/26/18 15:45 AST 22 U/L (5-34) 12/26/18 15:45 ALT 8 U/L (8-55) 12/26/18 15:45 Alkaline Phosphatase 73 U/L (40-150) 12/26/18 15:45 Serum Total Protein 7.9 g/dL (6.0-8.3) 12/26/18 15:45 Albumin 3.7 g/dL (3.4-4.8) 12/26/18 15:45 - Radiology Interpretation US - venous Status: report reviewed by me (LLE DVT.) FMR H&P: A/P - Problem List (1) Deep vein thrombosis (DVT) of left lower extremity Current Visit: Yes Status: Acute Code(s): I82.402 - ACUTE EMBOLISM AND THOMBOS UNSP DEEP VEINS OF L LOW EXTREM (2) UTI (urinary tract infection) Current Visit: Yes Status: Acute (3) Dementia Current Visit: No Status: Chronic Code(s): F03.90 - UNSPECIFIED DEMENTIA WITHOUT BEHAVIORAL DISTURBANCE (4) Encephalopathy acute Current Visit: Yes Status: Acute Code(s): G93.40 - ENCEPHALOPATHY, UNSPECIFIED - Plan 83 y/o F admitted for treatment of LLE DVT and UTI. 1. LLE DVT - Ordered Lovenox 1mg/kg BID - Pt has prior hx of DVT, and has IVC filter 2. UTI - Ordered ceftriaxone 1 g Q24H - Continue to monitor strict I/O's 3. Acute encephalopathy - Pt has a baseline altered mental status 2/2 Alzheimer dementia - Pt is more encephalopathic than normal baseline - Most likely secondary to delirium from acute UTI. 4. Chronic Dementia - Most likely Alzheimer Dementia - decreased recent memory, more intact remote memory 5. Hx of HTN - Pt not on her BP medications anymore 6. Decreased appetite - Pt has not eaten much in the past week. Most likly secondary to worsening health status. Disposition/LOS: Stable. Continue DVT therapy and antibiotic therapy for UTI. InPt at least 2 day admission. FMR H&P: Upper Level - Pertinent history 83 yo female presents for evaluation due to decreased urination. Patient has baseline dementia. Patient also had US in ED that shows extensive lower extremity DVT. Please see quality intern note above for further information. General: Female appears stated age, NAD HEENT: Moist mucous membranes CV: Regular rate and regular rhythm, no murmurs Respiratory: CTA-bilaterally Abdomen: Soft, nontender, no distention Normoactive BS Extremities: Moving all four symmetrically, left lower extremity edema present. Neuro: No focal deficits Psych: A&O x1. - Plan Date/Time: 12/26/181930 IMilton MD, have evaluated this patient and agree with findings/ plan as outlined by quality intern resident. Pertinent changes/additions are listed here. 1. 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 Encephalopathy - Past history of multiple UTIs - Awaiting U/A and culture - Start empiric therapy 3. Hypercalcemia - Chronic value due to primary hyperparathyroidism - At baseline - Follow up BMP 4. Dementia - Continue home meds 5. HTN - Continue home meds PCP: Elva CODE STATUS: INTUBATE ONLY Disposition: Stable, will admit to medical services.
[2018-12-26] MEDS ORDERED: Sodium Chloride 0.9% 1,000 ML IV SCH (19:45)
[2018-12-26] MEDS ORDERED: Enoxaparin Sodium 80 MG/0.8 ML SYRINGE SC SCH (19:45)
[2018-12-26] MEDS: cefTRIAXone\\ROCEPHIN 1 GM in Sodium Chloride 0.9% 100 ML IVPB SCH (20:47)
[2018-12-26] MEDS: Sodium Chloride 0.9% 1,000 ML IV SCH (20:51)
[2018-12-26 21:22] VITALS: BMI 21.7
[2018-12-26 21:50] LABS: Bacteria/HPF None Seen HPF (None Seen); Bilirubin Negative (Negative); Blood, Urine Negative (Negative); Clarity Clear (Clear); Glucose, Urine (Dipstick) Normal (Negative); Leukocyte 75 Leu/uL (Negative); Mucous/LPF Rare LPF (<2+); Nitrite Negative (Negative); Protein, Urine (Dipstick) 10 mg/dL (Neg-Trace); RBC/HPF 0-3 HPF (0-3); Squamous Epithelial 0-3 HPF (0-3); Urobilinogen 3 mg/dL (Less than 2)
--- NOTE | 2018-12-26 23:18 | PDOC.EVN ---
Event Note - Event Note Event Note: Date/Time: 12/26/18 [id number] I personally evaluated the patient and discussed the management with Dr. Caballero I agree with the History, Examination, Assessment and Plan documented above with any addition or exceptions noted below- 83 yo female with h/o dementia, HTN , HLD, hyperparathyroidism, and recurrent UTIs presents c/o decreased urine output with odor, decreased po intake, more confused than usual x 1 week. Family denies any fever/chills, N/V. Also noted to have increased swelling of LLE. PMH/PSH/Meds/All reviewed and agree with resident's documentation. T98.2 P78 BP 129/78 RR16 Exam repeated by me and agree with resident's findings. Labs: WBC=8.7, H/H=11.8/37.5, Rlz=073, IY=952, K=3.9, Fm=255, CO2=26, BUN/Cr=18/ 1.17, Gluc=91, Ca=11.9, PT/INR=15.3/1.2, PTT=27.3, UA- tr norman, (+) LE, 4-6 WBC, no bact. venous doppler- extensive LLE DVT A/P: 1) Altered MS from baseline- mild dehydration due to poor po intake; continue IVFs. 2) H/o UTIs- UA with few WBCs; will await urine culture; started on rocephin. 3) LLE DVT- start on lovenox; chart review shoes CT abd from October with evidence of IVC filter; family did not endorse h/o prior DVT; will need recheck history with family. 4) hyperparathyroidism - Calcium at baseline; continue to monitor. 5- NORBERT- continue IVFs
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
[2018-12-27 06:56] LABS: #Lymphocytes 1.8 thou/uL (1.20-3.40); #Monocytes 0.7 thou/uL (0.11-0.59); #Neutrophils 4.5 thou/uL (1.40-6.50); %Basophils 0.3 % (0.0-1.0); %Eosinophils 0.7 % (0.0-10.0); %Lymphocytes 24.9 % (21.0-51.0); %Monocytes 9.7 % (0.0-10.0); %Neutrophils 64.4 % (42.0-75.0); Hemoglobin 10.9 g/dL (12.0-16.0); Mean Corpuscular HGB CONC 31.9 g/dL (32.0-36.0); Mean Corpuscular Hemoglobin 26.5 pg (27.0-31.0); Mean Platelet Volume 10.7 fL (7.4-10.4); Platelet Count 248 thou/uL (130-400); RBC Distribution Width 16.6 % (11.5-14.5); Red Blood Cell (RBC) Count 4.13 mill/uL (4.20-5.40)
[2018-12-27 07:03] LABS: Anion Gap 12 mmol/L (10-20); BUN (Urea Nitrogen) 14 mg/dL (9.8-20.1); Calc. Creatinine Clearance 48 mL/min (70-130); Calcium 11.1 mg/dL (7.8-10.44); Carbon Dioxide 26 mmol/L (23-31); Chloride 109 mmol/L (98-107); Estimated GFR-MDRD 70; Glucose 74 mg/dL (83-110); Potassium 3.5 mmol/L (3.5-5.1); Sodium 143 mmol/L (136-145)
[2018-12-27] MEDS: Donepezil HCl 5 MG TAB PO SCH (08:12)
[2018-12-27] MEDS: Sodium Chloride 0.9% 1,000 ML IV SCH ×2 (08:16→18:18)
[2018-12-27] MEDS ORDERED: Enoxaparin Sodium 80 MG/0.8 ML SYRINGE SC SCH (09:00)
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
[2018-12-27] MEDS: cefTRIAXone\\ROCEPHIN 1 GM in Sodium Chloride 0.9% 100 ML IVPB SCH (20:26)
[2018-12-27] MEDS: Senokot S 8.6-50 MG TAB PO SCH (20:29)
[2018-12-27] MEDS: Melatonin 3 MG TAB PO SCH (20:29)
[2018-12-27] MEDS ORDERED: Prevnar 13-Val Conj/PF 0.5 ML SYRINGE IM ONE (21:00)
[2018-12-28] MEDS: Sodium Chloride 0.9% 1,000 ML IV SCH ×3 (04:45→20:04)
--- NOTE | 2018-12-28 05:37 | PDOC.FM ---
- Subjective Subjective: Patient doing well this morning. Denies any symptoms. Alert to her name only, at baseline. Had issues with voiding overnight. Was able to avoid late last night, but when nursing tried to get her up this morning to void she could not, bladder scan showed 250ml of urine. Dietary saw patient and rec BID ensure enlive and continuation with regular diet. Palliative care is going to try to have a conversation with daughter today to discuss plans of care. - Objective MAR Reviewed: Yes Vital Signs & Weight: Vital Signs (12 hours) Temp Pulse Resp BP Pulse Ox 12/28/18 05:23 97.6 F 60 16 121/70 98 12/28/18 00:00 97.5 F L 70 18 105/65 97 12/27/18 20:25 98 12/27/18 20:00 98.1 F 72 18 103/64 98 Weight Admit Weight 66.905 kg Weight 66.905 kg I&O: 12/26/18 12/27/18 12/28/18 06:59 06:59 06:59 Intake Total 1590 Balance 1590 Result Diagrams: 12/27/18 06:15 12/27/18 06:15 Phys Exam - Physical Examination Constitutional: NAD HEENT: moist MMs, sclera anicteric Neck: supple, full ROM Respiratory: no wheezing, clear to auscultation bilateral Cardiovascular: RRR, no significant murmur Gastrointestinal: soft mildly ttp lower abdomen Musculoskeletal: pulses present mild lower extremity swelling Neurological: normal sensation, moves all 4 limbs Lymphatic: no nodes Psychiatric: normal affect Deviation from normal: A&Ox1 Skin: no rash, cap refill <2 seconds Dx/Plan (1) Altered mental status, unspecified Code(s): R41.82 - ALTERED MENTAL STATUS, UNSPECIFIED Status: Acute (2) Deep vein thrombosis (DVT) of left lower extremity Code(s): I82.402 - ACUTE EMBOLISM AND THOMBOS UNSP DEEP VEINS OF L LOW EXTREM Status: Acute (3) Encephalopathy acute Code(s): G93.40 - ENCEPHALOPATHY, UNSPECIFIED Status: Acute (4) UTI (urinary tract infection) Status: Acute (5) Hypercalcemia Code(s): E83.52 - HYPERCALCEMIA Status: Acute (6) Severe malnutrition Code(s): E43 - UNSPECIFIED SEVERE PROTEIN-CALORIE MALNUTRITION Status: Acute - Plan Plan: 83 y/o F admitted for treatment of LLE DVT and UTI. #LLE DVT - Vascular U/S showed extensive DVT of LLE, common femoral to posterior tibial vein - HX of DVT - 11/19/2018 CT shows IVC filter in place at level of L3-L4 - Started on Lovenox 1mg/kg BID - Discontinued lovenox due to patient's IVC filter #UTI-very low suspicion - ceftriaxone 1 g Q24H had been ordered, patient had difficult time producing urine in the ED - Continue to monitor strict I/O's - UA negative for bacteria, urine culture negative at 48 hours; likely not UTI - Will hold abx for now, patient's encephalopathy likely actually 2/2 patient's underlying dementia #Acute encephalopathy - Pt has a baseline altered mental status 2/2 dementia, was altered on last admission - Pt is reportedly more encephalopathic than normal baseline, though UA negative for bacteria and likely 2/2 patient's deterioration with underlying dementia and poor nutritional status as it was reported that she has not eaten much throughout the last week -palliative saw patient yesterday, left number to hopefully speak with patient' s daughter today regarding goals of care #Severe malnutrition, decreased appetite - Pt has not eaten much in the past week. Most likely secondary to worsening health status. -dietitian evaluated patient yesterday and rec ensure enlive BID and continuing with regular diet -speech evaluated patient and rec pureed foods #Urinary Retention -patient had difficulty voiding early this morning -Q4H up to void -will consider wallace if she continues to have difficulty voiding #Hypercalcemia -Calcium of 11.9 on admission -Continue fluids #Chronic Dementia - Possibly Alzheimer Dementia - decreased recent memory, more intact remote memory - Was altered during last hospitalization for hypercalcemia - palliative care consult, appreciate recs PCP: Elva CODE STATUS: INTUBATE ONLY Disposition: Stable, following palliative, dietitian, and speech consult recs. urine culture neg at 48 hrs. No DVT proph 2/[address] No abx for now[address] Q4H voiding with possibly wallace
--- NOTE | 2018-12-28 10:20 | PRG ---
DATE OF SERVICE: 12/28/2018 Ms. Caballero is pleasant and alert this morning. She has developed some possible urinary retention. We will try a voiding program. If it is unsuccessful, may need to place a Cadena. It is likely she has a degree of neurogenic bladder from her dementia. Job ID: [id number]
[2018-12-28] MEDS: Donepezil HCl 5 MG TAB PO SCH (10:55)
[2018-12-28] MEDS: Senokot S 8.6-50 MG TAB PO SCH ×2 (10:55→20:03)
--- NOTE | 2018-12-28 16:58 | PDOC.PALCO ---
Palliative Care Consult - Consult Details Requesting Physician: Dr Rowe Reason for Consult: goals of care, advance directives assistance Family Members Present: Discussed with daughter Frances - Pertinent HPI 83 year old female with dementia, recurrent UTI's. Paid caregiver in home setting to assist as patient is a max assist for all ADL's. Increase in urinary retention in the home setting as well as increase in confusion and poor appetite x 1 week. Lower extremity swelling. Admitted for management of DVT and gentle fluid rehydration. Palliative care consult for assistance with goals of care secondary to repeat admissions. - Pertinent PMH Dementia, recurrent UTI, DVT with IVC filter, Hypertension - Social History Smoking Status: Never smoker Smoking: no tobacco exposure Alcohol Use: none Drug Use History: none Living Situation: other (Lives with daughter, paid caregiver in home) - Medications MAR Reviewed: Yes - Allergies Allergies/Adverse Reactions: Allergies Allergy/AdvReac Type Severity Reaction Status Date / Time No Known Allergies Allergy Verified 12/26/18 23:22 - Subjective Sleeping but arousable, oriented to self but otherwise confused. ROS: 10 point review other rodriguez negative. - Objective Vital Signs: Vital Signs - Most Recent Temp Pulse Resp BP Pulse Ox 97.5 F L 60 17 144/80 H 98 12/28/18 07:17 12/28/18 07:17 12/28/18 07:17 12/28/18 07:17 12/28/18 07:17 Palliative Performance Scale: 30 - Advance Directives Medical Power of Steward/Stewardess Bath: Mayra blanco - Physical Exam Constitutional: NAD, confusion HEENT: PERRLA, moist MMs, EOMI Respiratory: unlabored breathing Cardiovascular: RRR Gastrointestinal: soft, non-tender, positive bowel sounds Musculoskeletal: edema present Deviation from normal: Greater to left lower extremity Neurological: moves all 4 limbs Deviation from normal: Cheerful , poor memory recall Skin: no rash - Problem List (1) Palliative care encounter Code(s): Z51.5 - ENCOUNTER FOR PALLIATIVE CARE Current Visit: Yes Status: Acute (2) Physical deconditioning Code(s): R53.81 - OTHER MALAISE Current Visit: Yes Status: Acute - Plan/Recommendations Plan:Spoke with daughter in relation to disease trajectory and decline of patient as evidenced by increasing hospitalizations, decrease in appetite, increase in weakness. *Continue with paid caregiver at home *Discussed "Hoping for the best and planning for the worst" and Hospice may be a consideration in the future to manage symptoms in the home setting *Daughter requested PT consult and evaluation to go home with home health and have PT come in the home setting to assist patient in gaining strength. Consult ordered, however teaching in relation to lack of intake contributes to weakness and muscle wasting and atrophy. *Therapeutic Listening Revisited resuscitation status. *Confirms intubation only [60] minutes spent on this encounter with >50% of the time in counseling and coordination of care. Thank you for this very appropriate consult.
[2018-12-28] MEDS: Melatonin 3 MG TAB PO SCH (19:33)
[2018-12-28] MEDS: cefTRIAXone\\ROCEPHIN 1 GM in Sodium Chloride 0.9% 100 ML IVPB SCH (20:03)
--- NOTE | 2018-12-29 06:06 | PDOC.FM ---
- Subjective Subjective: She is a poor eater. Encouraged increase intake today. She did not sleep well, so told caregiver to keep her awake through the day. She voided last night and this morning well. - Objective Vital Signs & Weight: Vital Signs (12 hours) Temp Pulse Resp BP Pulse Ox 12/28/18 19:35 96 12/28/18 19:26 98.1 F 65 20 133/85 96 Weight Admit Weight 66.905 kg Weight 66.905 kg I&O: 12/27/18 12/28/18 12/29/18 06:59 06:59 06:59 Intake Total 3090 327 Output Total 450 Balance 3090 -123 Result Diagrams: 12/27/18 06:15 12/27/18 06:15 Phys Exam - Physical Examination Constitutional: NAD HEENT: PERRLA Neck: full ROM Respiratory: clear to auscultation bilateral Cardiovascular: RRR, no significant murmur Gastrointestinal: soft, non-tender, positive bowel sounds Musculoskeletal: no edema, pulses present Neurological: moves all 4 limbs Psychiatric: normal affect Skin: no rash Dx/Plan (1) Deep vein thrombosis (DVT) of left lower extremity Code(s): I82.402 - ACUTE EMBOLISM AND THOMBOS UNSP DEEP VEINS OF L LOW EXTREM Status: Acute (2) UTI (urinary tract infection) Status: Acute (3) Encephalopathy acute Code(s): G93.40 - ENCEPHALOPATHY, UNSPECIFIED Status: Acute (4) Severe malnutrition Code(s): E43 - UNSPECIFIED SEVERE PROTEIN-CALORIE MALNUTRITION Status: Acute (5) Hypercalcemia Code(s): E83.52 - HYPERCALCEMIA Status: Acute (6) Dementia Code(s): F03.90 - UNSPECIFIED DEMENTIA WITHOUT BEHAVIORAL DISTURBANCE Status: Chronic - Plan Plan: 83 y/o F admitted for treatment of LLE DVT and UTI. 1. LLE DVT - Vascular U/S showed extensive DVT of LLE, common femoral to posterior tibial vein - HX of DVT - 11/19/2018 CT shows IVC filter in place at level of L3-L4 - Discontinued lovenox due to patient's IVC filter and due to fall risk 2. UTI-very low suspicion - ceftriaxone 1 g Q24H had been ordered, patient had difficult time producing urine in the ED - Continue to monitor strict I/O's - UA negative for bacteria, urine culture negative; likely not UTI - Will transition Abx to PO 3. Acute encephalopathy - Pt has a baseline altered mental status 2/2 dementia, was altered on last admission - Pt is reportedly more encephalopathic than normal baseline, though UA negative for bacteria and likely 2/2 patient's deterioration with underlying dementia and poor nutritional status as it was reported that she has not eaten much throughout the last week - palliative spoke with patient's daughter yesterday regarding goals of care. No hospice at this time. Want PT consult for HH. 4. Severe malnutrition, decreased appetite - Pt has not eaten much in the past week. Most likely secondary to worsening health status. -dietitian evaluated patient and rec ensure enlive BID and continuing with regular diet -speech evaluated patient and rec pureed foods 5. Urinary Retention -she voided 500 ml overnight -Q4H up to void 6. Hypercalcemia -Calcium of 11.9 trending down 11.1 now -Continue fluids 7. Chronic Dementia - Possibly Alzheimer Dementia - decreased recent memory, more intact remote memory - Was altered during last hospitalization for hypercalcemia - palliative care consult, appreciate recs PCP: Elva DVT PPX: None, IVC Filter Diet: CC CODE STATUS: INTUBATE ONLY Disposition: Stable, following palliative, dietitian, and speech consult recs. urine culture neg at 48 hrs. No DVT proph 2/[address] No abx for now[address] Q4H voiding with possibly wallace
[2018-12-29] MEDS: Sodium Chloride 0.9% 1,000 ML IV SCH ×2 (06:23→17:33)
[2018-12-29] MEDS: Donepezil HCl 5 MG TAB PO SCH (08:35)
[2018-12-29] MEDS: Senokot S 8.6-50 MG TAB PO SCH ×2 (08:35→20:41)
--- NOTE | 2018-12-29 12:17 | PRG ---
DATE OF SERVICE: 12/29/2018 Ms. Caballero is awake and alert. She was finally able to empty her bladder of 500 mL urine on her own. I believe unfortunately likely, she will in the future at some point need a Cadena for a developing neurogenic bladder. We are also asking for a Palliative consultation and appreciate their input. Job ID: [id number]
[2018-12-29] MEDS: Melatonin 3 MG TAB PO SCH (20:41)
[2018-12-30] MEDS: Sodium Chloride 0.9% 1,000 ML IV SCH ×3 (03:38→21:30)
--- NOTE | 2018-12-30 06:01 | PDOC.FM ---
- Subjective Subjective: Mild headache. Eating well and stayed up most of the day yesterday. Slept well overnight. She is not voiding regularly. - Objective MAR Reviewed: Yes Vital Signs & Weight: Vital Signs (12 hours) Temp Pulse Resp BP Pulse Ox 12/29/18 20:00 97 12/29/18 19:00 98.1 F 75 16 109/72 97 Weight Admit Weight 66.905 kg Weight 66.905 kg I&O: 12/28/18 12/29/18 12/30/18 06:59 06:59 06:59 Intake Total 3090 1727 440 Output Total 1200 Balance 3090 527 440 Result Diagrams: 12/27/18 06:15 12/30/18 07:50 Phys Exam - Physical Examination Constitutional: NAD HEENT: PERRLA Neck: full ROM Respiratory: clear to auscultation bilateral Cardiovascular: RRR, no significant murmur Gastrointestinal: soft, non-tender, positive bowel sounds Musculoskeletal: no edema, pulses present Neurological: moves all 4 limbs Psychiatric: normal affect Skin: no rash Dx/Plan (1) Deep vein thrombosis (DVT) of left lower extremity Code(s): I82.402 - ACUTE EMBOLISM AND THOMBOS UNSP DEEP VEINS OF L LOW EXTREM Status: Acute (2) UTI (urinary tract infection) Status: Acute (3) Encephalopathy acute Code(s): G93.40 - ENCEPHALOPATHY, UNSPECIFIED Status: Acute (4) Severe malnutrition Code(s): E43 - UNSPECIFIED SEVERE PROTEIN-CALORIE MALNUTRITION Status: Acute (5) Hypercalcemia Code(s): E83.52 - HYPERCALCEMIA Status: Acute (6) Dementia Code(s): F03.90 - UNSPECIFIED DEMENTIA WITHOUT BEHAVIORAL DISTURBANCE Status: Chronic - Plan Plan: 83 y/o F admitted for treatment of LLE DVT and UTI. 1. LLE DVT- Stable - Vascular U/S showed extensive DVT of LLE, common femoral to posterior tibial vein - HX of DVT - 11/19/2018 CT shows IVC filter in place at level of L3-L4 - Discontinued lovenox due to patient's IVC filter and due to fall risk considered lovenox here, but because of her fall risk we will hold off. 2. UTI- NG D/C Abx - ceftriaxone 1 g Q24H had been ordered, patient had difficult time producing urine in the ED - Continue to monitor strict I/O's - UA negative for bacteria, urine culture negative; likely not UTI 3. Acute encephalopathy - Pt has a baseline altered mental status 2/2 dementia, was altered on last admission - Pt is reportedly more encephalopathic than normal baseline, though UA negative for bacteria and likely 2/2 patient's deterioration with underlying dementia and poor nutritional status as it was reported that she has not eaten much throughout the last week - palliative spoke with patient's daughter yesterday regarding goals of care. No hospice at this time. Want PT consult for HH. 4. Severe malnutrition, decreased appetite - Pt has not eaten much in the past week. Most likely secondary to worsening health status. -dietitian evaluated patient and rec ensure enlive BID and continuing with regular diet -speech evaluated patient and rec pureed foods 5. Urinary Retention -Cadena inserted today. 6. Hypercalcemia- Resolved -Calcium of 11.9 trending down 9.8 today -Continue fluids 7. Chronic Dementia - Possibly Alzheimer Dementia - decreased recent memory, more intact remote memory - Was altered during last hospitalization for hypercalcemia - palliative care consult, appreciate recs PCP: Elva DVT PPX: None, IVC Filter Diet: CC CODE STATUS: INTUBATE ONLY Disposition: Stable, following palliative, dietitian, and speech consult recs. urine culture neg at 48 hrs. No DVT proph 2/[address] No abx for now[address] Cadena today. Placed PT consult for HH recommendation and case management is on for d/c planning.
[2018-12-30 08:27] LABS: Anion Gap 10 mmol/L (10-20); BUN (Urea Nitrogen) 6 mg/dL (9.8-20.1); Calc. Creatinine Clearance 64 mL/min (70-130); Calcium 9.8 mg/dL (7.8-10.44); Carbon Dioxide 22 mmol/L (23-31); Chloride 113 mmol/L (98-107); Estimated GFR-MDRD Greater than 90; Glucose 75 mg/dL (83-110); Potassium 3.4 mmol/L (3.5-5.1); Sodium 142 mmol/L (136-145)
[2018-12-30] MEDS: Donepezil HCl 5 MG TAB PO SCH (09:27)
[2018-12-30] MEDS: Senokot S 8.6-50 MG TAB PO SCH ×2 (09:28→21:25)
[2018-12-30] MEDS ORDERED: Ziprasidone 20 MG VIAL IM PRN (10:14)
--- NOTE | 2018-12-30 10:59 | PRG ---
DATE OF SERVICE: 12/30/2018 Ms. Caballero again developed urinary retention and a Cadena catheter will be placed. This will likely be needed for the duration. We will go ahead and institute some Lovenox at least until she is discharged to home for her DVT. Job ID: [id number]
[2018-12-30] MEDS: Melatonin 3 MG TAB PO SCH (21:26)
--- NOTE | 2018-12-31 05:17 | PDOC.FM ---
- Subjective Subjective: Patient doing well this morning. Palliative spoke with daughter and they are "hoping for the best, planning for the worst." Hospice was discussed as a future consideration. Daughter requested patient go home with HH. PT evaluated yesterday and rec PT with HH 2-6x/week. - Objective Vital Signs & Weight: Vital Signs (12 hours) Temp Pulse Resp BP Pulse Ox 12/30/18 20:00 96 12/30/18 19:25 97.7 F 74 20 110/70 96 Weight Admit Weight 66.905 kg Weight 66.905 kg I&O: 12/29/18 12/30/18 12/31/18 06:59 06:59 06:59 Intake Total 1727 1760 1250 Output Total 1200 475 Balance 527 1760 775 Result Diagrams: 12/27/18 06:15 12/30/18 07:50 Phys Exam - Physical Examination Constitutional: NAD HEENT: moist MMs, sclera anicteric Neck: no nodes, full ROM Respiratory: no wheezing, clear to auscultation bilateral Cardiovascular: RRR, no significant murmur Gastrointestinal: soft, non-tender Musculoskeletal: no edema, pulses present Neurological: normal sensation, moves all 4 limbs Lymphatic: no nodes Psychiatric: normal affect Deviation from normal: A&Ox1 Skin: no rash, normal turgor Dx/Plan (1) Altered mental status, unspecified Code(s): R41.82 - ALTERED MENTAL STATUS, UNSPECIFIED Status: Acute (2) Deep vein thrombosis (DVT) of left lower extremity Code(s): I82.402 - ACUTE EMBOLISM AND THOMBOS UNSP DEEP VEINS OF L LOW EXTREM Status: Acute (3) Encephalopathy acute Code(s): G93.40 - ENCEPHALOPATHY, UNSPECIFIED Status: Acute (4) UTI (urinary tract infection) Status: Acute (5) Hypercalcemia Code(s): E83.52 - HYPERCALCEMIA Status: Acute (6) Severe malnutrition Code(s): E43 - UNSPECIFIED SEVERE PROTEIN-CALORIE MALNUTRITION Status: Acute - Plan Plan: 83 y/o F admitted for treatment of LLE DVT and UTI. #LLE DVT- Stable - Vascular U/S showed extensive DVT of LLE, common femoral to posterior tibial vein - HX of DVT - 11/19/2018 CT shows IVC filter in place at level of L3-L4 - Continue to hold lovenox 2/2 IVC filter #UTI- NG D/C Abx - patient had difficult time producing urine in the ED - Continue to monitor strict I/O's - UA negative for bacteria, urine culture negative; likely not UTI - wallace inserted yesterday to help with urinary retention symptoms. Wallace continues to drain urine. #Acute encephalopathy - Pt has a baseline altered mental status 2/2 dementia, was altered on last admission - Pt is reportedly more encephalopathic than normal baseline, though UA negative for bacteria and likely 2/2 patient's deterioration with underlying dementia and poor nutritional status as it was reported that she has not eaten much throughout the last week - palliative spoke with patient's daughter yesterday regarding goals of care. No hospice at this time. - PT consult 12/30 rec HH 2-6x/week #Severe malnutrition, decreased appetite - Pt has not eaten much in the past week. Most likely secondary to worsening health status. -dietitian evaluated patient and rec ensure enlive BID and continuing with regular diet -speech evaluated patient and rec pureed foods #Urinary Retention -Wallace inserted yesterday. -possibly recommend f/u with outpatient urology #Hypercalcemia- Resolved -Calcium of 11.9 trending down 9.8 today -Continue fluids #Chronic Dementia - Possibly Alzheimer Dementia - decreased recent memory, more intact remote memory - Was altered during last hospitalization for hypercalcemia - palliative care consult, no hospice at this time; home with HH, appreciate recs PCP: Elva DVT PPX: None, IVC Filter Diet: CC CODE STATUS: INTUBATE ONLY Disposition: Stable, following palliative, dietitian, and speech consult recs. urine culture neg at 48 hrs. No DVT proph 2/[address]. No abx for now. Wallace placed. PT rec HH with PT 2-6x/week, likely d/c today. Addendum - Attending - Attending Attestation Date/Time: 12/31/18 1211 I personally evaluated the patient and discussed the management with Dr. Rowe. I agree with the History, Examination, Assessment and Plan documented above with any addition or exceptions noted below. The patient's wallace will be removed and make sure she can void. Likely d/c home this afternoon with home health.
[2018-12-31 07:58] VITALS: TEMP 98.2
[2018-12-31] MEDS: Donepezil HCl 5 MG TAB PO SCH (08:51)
[2018-12-31] MEDS: Senokot S 8.6-50 MG TAB PO SCH (08:52)
[2018-12-31] MEDS: Sodium Chloride 0.9% 1,000 ML IV SCH (10:56)
[2018-12-31 17:32] VITALS: BP 134/87
--- NOTE | 2019-01-01 01:49 | DIS ---
DATE OF ADMISSION: 12/26/2018 DATE OF DISCHARGE: 12/31/2018 ADMITTING RESIDENT: Theodora Caballero DO ADMITTING ATTENDING: Coleen Ace MD DISCHARGE RESIDENT: Christiane Rowe MD DISCHARGE ATTENDING: MD Earnest CONSULTS: Case Management, PT/OT, Speech, Dietary, Palliative. PROCEDURES: Cadena catheter inserted on 12/30, removed on 12/31. PRIMARY DIAGNOSES: Left lower extremity deep venous thrombosis, severe malnutrition, urinary retention. SECONDARY DIAGNOSES: Dementia, rule out urinary tract infection, hypercalcemia. DISCHARGE MEDICATIONS: 1. Donepezil 10 mg p.o. daily. 2. Melatonin 6 mg p.o. daily. DISCONTINUED MEDICATIONS: 1. Zofran IVP 4 mg q.6 hours p.r.n. 2. Senokot. 3. Geodon 10 mg IM q.2 hours p.r.n. 4. Normal saline. HISTORY OF PRESENT ILLNESS/HOSPITAL COURSE: The patient was brought in by her daughter due to recent increased confusion beyond baseline and urinary retention. Upon evaluation, her UA was negative for bacteria and nitrites. She was given 1 g ceftriaxone in the ED and it was then discontinued. Her urine culture came back negative. She was also found to have left lower extremity DVT. During her previous visit in October, she had an abdominal CT scan that demonstrated an IVC filter within the infrarenal IVC at approximately the L3-L4 intervertebral level. She was started on therapeutic Lovenox in the ED and was then discontinued. The patient was A and O x1 throughout the hospitalization. It was reported to me that she has been hallucinating while home. It is likely that her dementia is worsening, causing increased confusion. Palliative care consulted the patient and spoke with patient's daughter. Discussed the plan "hoping for the best, planning for the worse" with possible consideration of hospice in the future. Daughter had asked for PT evaluation and home health. Dietitian and Speech also evaluated the patient. Speech determined that the patient would do best on a pureed diet. Dietitian diagnosed the patient with severe malnutrition and recommended a regular diet with Ensure Enlive b.i.d. The patient also dealt with urinary retention during the hospitalization. However, with coaching given to the patient every 4 hours, the patient was able to void on her own most of the time. A Cadena catheter was then placed on 12/30 to assist with urinary retention, and was then removed on 12/31. The patient was able to void afterward before discharge. DISPOSITION: Stable, with likely declining dementia. DISCHARGE INSTRUCTIONS: 1. Location: Home with home health. 2. Diet: Regular with Ensure Enlive b.i.d. 3. Activity: As tolerated with walker. 4. Followup: With PCP within 7 days to monitor urinary retention and dehydration. Job ID: [id number] MTDD
== END 2018-12-31 18:44 | disposition home health service (06) | DRG 299 ==
LOC: ERS 14:23 → T4-A 17:47
PROVIDERS: ADMIT Family Medicine; ATTEND Family Medicine
DX: I82.4Z2 Acute embolism and thrombosis of unspecified deep veins of left distal lower extremity (principal); E43 Unspecified severe protein-calorie malnutrition; R44.3 Hallucinations, unspecified; N17.9 Acute kidney failure, unspecified; G93.40 Encephalopathy, unspecified; N39.0 Urinary tract infection, site not specified; Z51.5 Encounter for palliative care; R33.9 Retention of urine, unspecified; E83.52 Hypercalcemia; E78.5 Hyperlipidemia, unspecified; I10 Essential (primary) hypertension; E86.0 Dehydration; G30.9 Alzheimer's disease, unspecified; N31.9 Neuromuscular dysfunction of bladder, unspecified; F02.80 Dementia in other diseases classified elsewhere, unspecified severity, without behavioral disturbance, psychotic disturbance, mood disturbance, and anxiety; Z90.710 Acquired absence of both cervix and uterus; Z87.440 Personal history of urinary (tract) infections; Z68.21 Body mass index [BMI] 21.0-21.9, adult
CPT/HCPCS: 36415; 51701; 80048; 80053; 81003; 81015; 82274; 85025; 85610; 85730; 87086; 90471; 90670; 96360; 96372; A4353; G0009; J0696; J1650; J3486; J3490

== ENCOUNTER 2019-05-01 13:12 | Emergency (ER) | payer MEDICARE ==
[2019-05-01] MEDS ORDERED: Lorazepam 1 MG TAB ONE (14:20)
[2019-05-01] MEDS ORDERED: Lidocaine 1% (PF) 30 ML VIAL ONE (14:28)
== END 2019-05-01 15:43 | disposition home or self-care (01) ==
LOC: ERS 13:12
DX: L02.211 Cutaneous abscess of abdominal wall (principal); E78.5 Hyperlipidemia, unspecified; I10 Essential (primary) hypertension; Z79.899 Other long term (current) drug therapy
CPT/HCPCS: 10060; J2001

== ENCOUNTER 2020-12-02 10:14 | Inpatient (IN) | payer MEDICARE ==
[2020-12-02 11:30] LABS: #Basophils 0.1 thou/uL (0.0-0.2); #Eosinphils 0.2 thou/uL (0.0-0.7); #Monocytes 1.1 thou/uL (0.11-0.59); #Neutrophils 5.9 thou/uL (1.40-6.50); %Basophils 0.8 % (0.0-1.0); %Eosinophils 1.6 % (0.0-10.0); %Lymphocytes 29.1 % (21.0-51.0); %Monocytes 10.3 % (0.0-10.0); %Neutrophils 58.1 % (42.0-75.0); Hemoglobin 11.2 g/dL (12.0-16.0); Mean Corpuscular Hemoglobin 26.7 pg (27.0-31.0); Mean Corpuscular Volume 86.3 fL (78.0-98.0); Mean Platelet Volume 9.7 fL (7.4-10.4); Platelet Count 397 thou/uL (130-400); Red Blood Cell (RBC) Count 4.19 mill/uL (4.20-5.40); White Blood Cell (WBC) Count 10.1 thou/uL (4.8-10.8)
[2020-12-02 11:46] LABS: ALT (SGPT) Less than 7 U/L (8-55); AST (SGOT) 11 U/L (5-34); Albumin 3.4 g/dL (3.4-4.8); Alkaline Phosphatase 73 U/L (40-110); Anion Gap 10 mmol/L (10-20); BUN (Urea Nitrogen) 12 mg/dL (9.8-20.1); Bilirubin, Total 0.4 mg/dL (0.2-1.2); Calc. Creatinine Clearance 0 mL/min (70-130); Calcium 11.6 mg/dL (7.8-10.44); Carbon Dioxide 29 mmol/L (23-31); Chloride 105 mmol/L (98-107); Globulin 4.1 g/dL (2.4-3.5); Glucose 92 mg/dL (83-110); Potassium 4.6 mmol/L (3.5-5.1); Protein, Total 7.5 g/dL (5.8-8.1); Sodium 139 mmol/L (136-145)
[2020-12-02] MEDS ORDERED: Vancomycin 1 GM/200 ML BAG ONE (12:09)
[2020-12-02] MEDS ORDERED: Acetaminophen 650 MG Suppository PR PRN (13:37)
[2020-12-02] MEDS ORDERED: Cefepime 2 GM VIAL ONE (13:48)
[2020-12-02 15:56] VITALS: BMI 19.8
[2020-12-02] MEDS: Melatonin 3 MG TAB PO PRN (20:31)
[2020-12-02] MEDS ORDERED: Ziprasidone 20 MG CAP PO SCH (21:00)
[2020-12-02] MEDS: Cefepime 2 GM in Sodium Chloride 0.9% 100 ML IVPB SCH (22:14)
[2020-12-03 06:26] LABS: Anion Gap 11 mmol/L (10-20); BUN (Urea Nitrogen) 14 mg/dL (9.8-20.1); Calc. Creatinine Clearance 53 mL/min (70-130); Calcium 11.5 mg/dL (7.8-10.44); Carbon Dioxide 24 mmol/L (23-31); Chloride 107 mmol/L (98-107); Glucose 79 mg/dL (83-110); Potassium 4.7 mmol/L (3.5-5.1); Sodium 137 mmol/L (136-145)
[2020-12-03] MEDS ORDERED: Ziprasidone 20 MG CAP PO SCH (08:00)
[2020-12-03] MEDS: Cefepime 2 GM in Sodium Chloride 0.9% 100 ML IVPB SCH ×2 (09:39→21:16)
[2020-12-03] MEDS: Enoxaparin Sodium 30 MG/0.3 ML SYRINGE SC SCH (09:39)
[2020-12-03] MEDS: Vancomycin 1 GM in Premix Bag 1 BAG IVPB SCH (11:22)
[2020-12-03] MEDS: Acetaminophen 325 MG TAB PO PRN (13:19)
[2020-12-03] MEDS: Ziprasidone 20 MG CAP PO SCH (16:53)
[2020-12-03] MEDS: Melatonin 3 MG TAB PO PRN (21:16)
[2020-12-04 06:01] LABS: Anion Gap 10 mmol/L (10-20); BUN (Urea Nitrogen) 12 mg/dL (9.8-20.1); Calc. Creatinine Clearance 54 mL/min (70-130); Calcium 11.4 mg/dL (7.8-10.44); Carbon Dioxide 24 mmol/L (23-31); Chloride 107 mmol/L (98-107); Glucose 88 mg/dL (83-110); Potassium 4.4 mmol/L (3.5-5.1); Sodium 137 mmol/L (136-145)
[2020-12-04] MEDS: Cefepime 2 GM in Sodium Chloride 0.9% 100 ML IVPB SCH (09:51)
[2020-12-04] MEDS: Enoxaparin Sodium 30 MG/0.3 ML SYRINGE SC SCH (09:52)
[2020-12-04 11:26] LABS: Vancomycin, Trough 11.3 ug/mL
[2020-12-04] MEDS ORDERED: VANCOMYCIN 1.25 GM/250 ML BAG 1.25 GM in Premix Bag 1 BAG IVPB SCH (13:00)
[2020-12-04] MEDS ORDERED: Mineral Oil ENEMA PR SCH (13:00)
[2020-12-04] MEDS ORDERED: Lidocaine 1% w/Epinephrine 1:100K 20 ML VIAL IJ SCH (13:24)
[2020-12-04] MEDS ORDERED: Glycerin Adult Supp. (24 ct jar) PR SCH (13:45)
[2020-12-04] MEDS: Ziprasidone 20 MG CAP PO SCH (15:22)
[2020-12-04] MEDS: Vancomycin 1 GM in Premix Bag 1 BAG IVPB SCH (15:43)
[2020-12-05 05:50] LABS: Anion Gap 6 mmol/L (10-20); BUN (Urea Nitrogen) 14 mg/dL (9.8-20.1); Calc. Creatinine Clearance 55 mL/min (70-130); Calcium 11.3 mg/dL (7.8-10.44); Carbon Dioxide 28 mmol/L (23-31); Chloride 106 mmol/L (98-107); Glucose 117 mg/dL (83-110); Potassium 4.4 mmol/L (3.5-5.1); Sodium 136 mmol/L (136-145)
[2020-12-05] MEDS: Enoxaparin Sodium 40 MG/0.4 ML SYRINGE SC SCH (08:22)
[2020-12-05] MEDS: Ziprasidone 20 MG CAP PO SCH (16:05)
[2020-12-05] MEDS: Acetaminophen 325 MG TAB PO PRN (16:07)
[2020-12-06] MEDS: Enoxaparin Sodium 40 MG/0.4 ML SYRINGE SC SCH (08:24)
[2020-12-06 15:58] VITALS: BP 113/74; TEMP 97.6
[2020-12-06] MEDS: Ziprasidone 20 MG CAP PO SCH (16:15)
== END 2020-12-06 16:05 | disposition home health service (06) | DRG 596 ==
LOC: ERS 10:14 → ERHOLD 12:54 → SJJU 15:18
PROVIDERS: ADMIT Family Medicine; ATTEND Family Medicine
PROC: 0HBLXZX Excision of Left Lower Leg Skin, External Approach, Diagnostic (ICD-10-PCS; principal; 2020-12-04)
DX: L40.3 Pustulosis palmaris et plantaris (principal); F03.91 Unspecified dementia, unspecified severity, with behavioral disturbance; G93.49 Other encephalopathy; Z66 Do not resuscitate; E78.5 Hyperlipidemia, unspecified; E21.0 Primary hyperparathyroidism; I10 Essential (primary) hypertension; Z79.899 Other long term (current) drug therapy; Z86.718 Personal history of other venous thrombosis and embolism; Z86.14 Personal history of Methicillin resistant Staphylococcus aureus infection; Z90.81 Acquired absence of spleen; Z90.49 Acquired absence of other specified parts of digestive tract; Z90.710 Acquired absence of both cervix and uterus
CPT/HCPCS: 36415; 80048; 80053; 80202; 83605; 83970; 85025; 87040; 87070; 87077; 87186; 87205; 88305; J0692; J1650; J3370; J3490

== ENCOUNTER 2021-12-01 13:29 | Emergency (ER) | payer MEDICARE ==
[2021-12-01] MEDS ORDERED: Iopamidol-370 76% 500 ML 1 ML ONE (14:17)
[2021-12-01 15:41] LABS: #Basophils 0.1 thou/uL (0.0-0.2); #Eosinphils 0.1 thou/uL (0.0-0.7); #Lymphocytes 3.5 thou/uL (1.20-3.40); #Monocytes 0.9 thou/uL (0.11-0.59); #Neutrophils 4.8 thou/uL (1.40-6.50); %Basophils 0.8 % (0.0-1.0); %Eosinophils 0.9 % (0.0-10.0); %Lymphocytes 36.8 % (21.0-51.0); %Monocytes 9.9 % (0.0-10.0); %Neutrophils 51.5 % (42.0-75.0); Hemoglobin 11.7 g/dL (12.0-16.0); Mean Corpuscular HGB CONC 31.9 g/dL (32.0-36.0); Mean Corpuscular Hemoglobin 28.3 pg (27.0-31.0); Mean Corpuscular Volume 88.9 fL (78.0-98.0); Mean Platelet Volume 10.8 fL (7.4-10.4); Platelet Count 250 thou/uL (130-400); RBC Distribution Width 14.4 % (11.5-14.5); Red Blood Cell (RBC) Count 4.12 mill/uL (4.20-5.40); White Blood Cell (WBC) Count 9.4 thou/uL (4.8-10.8)
[2021-12-01 16:10] LABS: ALT (SGPT) 14 U/L (8-55); AST (SGOT) 26 U/L (5-34); Albumin 3.9 g/dL (3.4-4.8); Alkaline Phosphatase 74 U/L (40-110); Anion Gap 9 mmol/L (10-20); BUN (Urea Nitrogen) 22 mg/dL (9.8-20.1); Bilirubin, Total 0.3 mg/dL (0.2-1.2); Calc. Creatinine Clearance 0 mL/min (70-130); Calcium 12.2 mg/dL (7.8-10.44); Carbon Dioxide 33 mmol/L (23-31); Chloride 108 mmol/L (98-107); Estimated GFR 82; Globulin 4.5 g/dL (2.4-3.5); Glucose 122 mg/dL (83-110); Potassium 4.6 mmol/L (3.5-5.1); Protein, Total 8.4 g/dL (5.8-8.1); Sodium 145 mmol/L (136-145)
[2021-12-01 17:56] LABS: ALT (SGPT) 10 U/L (8-55); AST (SGOT) 20 U/L (5-34); Albumin 3.5 g/dL (3.4-4.8); Alkaline Phosphatase 69 U/L (40-110); Anion Gap 11 mmol/L (10-20); BUN (Urea Nitrogen) 21 mg/dL (9.8-20.1); Bilirubin, Total 0.3 mg/dL (0.2-1.2); Calc. Creatinine Clearance 0 mL/min (70-130); Calcium 11.4 mg/dL (7.8-10.44); Carbon Dioxide 26 mmol/L (23-31); Chloride 111 mmol/L (98-107); Estimated GFR 85; Globulin 3.7 g/dL (2.4-3.5); Glucose 108 mg/dL (83-110); Potassium 4.7 mmol/L (3.5-5.1); Protein, Total 7.2 g/dL (5.8-8.1); Sodium 143 mmol/L (136-145)
== END 2021-12-01 19:39 | disposition home or self-care (01) ==
LOC: ERS 13:29
DX: D17.1 Benign lipomatous neoplasm of skin and subcutaneous tissue of trunk (principal); M79.81 Nontraumatic hematoma of soft tissue; E78.5 Hyperlipidemia, unspecified; I10 Essential (primary) hypertension; F03.90 Unspecified dementia, unspecified severity, without behavioral disturbance, psychotic disturbance, mood disturbance, and anxiety; Z79.82 Long term (current) use of aspirin; Z79.899 Other long term (current) drug therapy
CPT/HCPCS: 36415; 71260; 80053; 85025; 93005; Q9967